=== PATIENT | female | born 1940 | race Caucasian/White ===

== ENCOUNTER 2020-01-21 14:27 | Outpatient (REF) | payer MEDICARE, SELFPAY ==
[2020-01-21 17:28] LABS: Free T4 (Free Thyroxine) 0.97 ng/dL (0.71-1.85); Thyroid Stimulating Hormone 0.26 uIU/mL (0.32-4.0)
[2020-01-22 08:07] LABS: Triiodothyronine T3 Total 129 ng/dL (76-181)
== END 2020-01-21 14:28 | disposition home or self-care (01) ==
LOC: HO.HMGCLDS 14:27
PROVIDERS: PCP Internal Medicine; Visit Provider Hospitalist
DX: E03.9 Hypothyroidism, unspecified (principal)
CPT/HCPCS: 84439; 84443; 84480

== ENCOUNTER 2020-04-21 07:37 | Emergency (ER) | payer MEDICARE, SELFPAY ==
[2020-04-21 07:44] VITALS: BP 132/76; BP 143/70; PULSE 83; PULSE 87; RESP 16; TEMP 37.2; O2SAT 100; O2SAT 99
--- NOTE | 2020-04-21 07:56 | ED_ITS ---
HPI - Weakness General Chief complaint: General Medical Stated complaint: WEAKNESS,SOB, ?'S COVID VACC RELATED Time Seen by Provider: 04/21/20 07:56 Source: patient Mode of arrival: ambulatory Limitations: no limitations History of Present Illness HPI Narrative: Patient been feeling weak tired for last 1 week after getting the COVID vaccination patient denies any fever no shortness of breath no cough no urinary symptoms MD Complaint: generalized weakness Related Data Home Medications Medication Instructions Recorded Confirmed celecoxib 100 mg capsule 100 mg PO BID 01/21/20 01/21/20 dextroamphetamine-amphetamine 20 1 tab PO DAILY 01/21/20 01/21/20 mg tablet dextroamphetamine-amphetamine ER 1 cap PO QAM 01/21/20 01/21/20 10 mg 24hr capsule,extend release lactulose 10 gram/15 mL oral 3 PO PRN 01/21/20 01/21/20 solution Previous Rx's Medication Instructions Recorded valacyclovir 500 mg tablet 500 mg PO DAILY #90 tab 04/04/20 Allergies Allergy/AdvReac Type Severity Reaction Status Date / Time lidocaine Allergy Unknown Verified 10/12/19 00:00 No Known Allergies Allergy Unverified 11/26/19 19:45 [No Known Allergies*] alcohol Allergy Unknown Uncoded 10/12/19 00:00 Review of Systems Review of Systems: Constitutional : No Weight loss, No Fever, No Chills ENT/Mouth : No sore throat, No Rhinorrhea Eyes: No Eye Pain, No Swelling Cardiovascular : No Chest Pain, no palpitations Respiratory : No Cough, No Sputum, no shortness of breath Gastrointestinal : no Nausea, No Vomiting, No Diarrhea, No abdominal Pain, no black stools Genitourinary : No Dysuria, No Urinary Frequency Musculoskeletal : No joint pain, No Myalgias, No Joint Swelling Skin : No Skin Lesions, No rash Neuro : No Weakness, No Numbness, No Dizziness, No Headache Psych : No Anxiety/Panic, No Depression Heme/Lymph: No Bruising, No Lymphadenopathy Endocrine : No Polyuria, No Polydipsia All other systems reviewed and are negative PMFSH Past Medical History Medical History Hypothyroid Sensitive to concentration of IV drug Surgical History History of hip replacement Social History Social History Alcohol intake: never Smoking Status: Former smoker Smoked in Last 30 Days: No Use of substances other than those prescribed or required for medical reasons: No Advance Directives: No Advance Directives Information Provided: No Physical Exam Vital Signs: Vital Signs: Last Vital Signs Temp 98.9 F 04/21/20 07:44 Pulse 83 04/21/20 07:44 Resp 16 04/21/20 07:44 BP 143/70 H 04/21/20 07:44 Pulse Ox 100 04/21/20 07:44 Body Mass Index 30.0 Appearance: Alert. Oriented X3. No acute distress. Eyes: Pupils equal, round and reactive to light. ENT: Pharynx normal. Neck: Normal inspection. Neck supple. CVS: Normal heart rate and rhythm. Pulses normal. Respiratory: No respiratory distress. Breath sounds normal. Abdomen: Soft and nontender. Bowel sounds are present, no mass palpable, no CVA tenderness Skin: Skin warm and dry. Normal skin color. Normal skin turgor. Extremities: No lower extremity edema. Neuro: Oriented X 3. No motor deficit. No sensory deficit. MDM - Weakness Differential Diagnosis Differential diagnosis: Likely UTI, anemia, hypoglycemia and hypothyroidism Medical Records Attestation: I reviewed the patient's medical records. Lab Data Attestation: I reviewed the patient's lab results. Result diagrams: 04/21/20 08:25 04/21/20 08:25 Labs: Lab Results 04/21/20 04/21/20 04/21/20 Range/Units 08: 08:25 08:25 WBC 14.6 H (4.8-10.8) X10*3/uL RBC 3.98 L (4.20-5.50) X10*6/uL Hgb 12.3 (12.0-16.0) g/dl Hct 36.1 L (37-47) % MCV 90.7 (80-98) fL MCH 30.9 (27.0-33.0) pg MCHC 34.1 (31.0-35.0) g/dl RDW 13.5 (11.0-16.0) % Plt Count 184 (160-400) X10*3/uL MPV 12.0 (9.4-12.3) fL Immature Gran % (Auto) 0.5 H (0.0-0.4) % Neut % (Auto) 81.9 H (45-73) % Lymph % (Auto) 4.7 L (20-40) % [place] % (Auto) 11.9 H (2-11) % Eos % (Auto) 0.7 (0-4) % Baso % (Auto) 0.3 (0-2) % Lymph # (Auto) 0.7 L (1.2-4.9) X10*3/uL [place] # (Auto) 1.7 H (0.1-1.2) X10*3/uL Eos # (Auto) 0.1 (0.0-0.4) X10*3/uL Baso # (Auto) 0.1 (0.0-0.2) X10*3/uL Abs Immat Gran (auto) 0.07 H (0.00-0.03) X10*3/uL Absolute Neuts (auto) 11.9 H (2.0-8.3) X10*3/uL Absolute Nucleated RBC 0.000 (0.0-0.012) X10*3/uL Nucleated RBC % (auto) 0.0 (0.0-0.2) /100WBC Smear Tech's Comments VERIFIED Sodium 136 (135-145) mmol/L Potassium 4.3 (3.3-5.1) mmol/L Chloride 102 (96-108) mmol/L Carbon Dioxide 25 (22-29) mmol/L Anion Gap 13 (12-20) BUN 12 (9-16) mg/dL Creatinine 0.65 (0.5-1.4) mg/dL Estim Creat Clear Calc 71.5 Estimated GFR > 60 Random Glucose 114 (60-115) mg/dL Calcium 8.0 L (8.4-10.2) mg/dL Total Bilirubin 0.8 (0.0-1.0) mg/dL Direct Bilirubin 0.3 (0.0-0.5) mg/dL AST 48 H (5-31) U/L ALT 43 H (0-31) U/L Alkaline Phosphatase 95 (39-117) U/L Total Protein 6.3 L (6.5-8.0) g/dL Albumin 3.1 L (3.5-5.0) g/dL TSH 2.80 (0.32-4.0) uIU/mL Urine Color Urine Appearance Urine pH (5.0-8.0) Ur Specific [place] (1.005-1.025) Urine Protein (NEG-TRACE) MG/DL Urine Glucose (UA) (NEG) MG/DL Urine Ketones (NEG) MG/DL Urine Blood (NEG) Urine Nitrite (NEG) Ur Leukocyte Esterase (NEG) COVID-19 ([facility]) Negative (Negative) COVID-19 Clin Com See Note 04/21/20 Range/Units 09:42 WBC (4.8-10.8) X10*3/uL RBC (4.20-5.50) X10*6/uL Hgb (12.0-16.0) g/dl Hct (37-47) % MCV (80-98) fL MCH (27.0-33.0) pg MCHC (31.0-35.0) g/dl RDW (11.0-16.0) % Plt Count (160-400) X10*3/uL MPV (9.4-12.3) fL Immature Gran % (Auto) (0.0-0.4) % Neut % (Auto) (45-73) % Lymph % (Auto) (20-40) % [place] % (Auto) (2-11) % Eos % (Auto) (0-4) % Baso % (Auto) (0-2) % Lymph # (Auto) (1.2-4.9) X10*3/uL [place] # (Auto) (0.1-1.2) X10*3/uL Eos # (Auto) (0.0-0.4) X10*3/uL Baso # (Auto) (0.0-0.2) X10*3/uL Abs Immat Gran (auto) (0.00-0.03) X10*3/uL Absolute Neuts (auto) (2.0-8.3) X10*3/uL Absolute Nucleated RBC (0.0-0.012) X10*3/uL Nucleated RBC % (auto) (0.0-0.2) /100WBC Smear Tech's Comments Sodium (135-145) mmol/L Potassium (3.3-5.1) mmol/L Chloride (96-108) mmol/L Carbon Dioxide (22-29) mmol/L Anion Gap (12-20) BUN (9-16) mg/dL Creatinine (0.5-1.4) mg/dL Estim Creat Clear Calc Estimated GFR Random Glucose (60-115) mg/dL Calcium (8.4-10.2) mg/dL Total Bilirubin (0.0-1.0) mg/dL Direct Bilirubin (0.0-0.5) mg/dL AST (5-31) U/L ALT (0-31) U/L Alkaline Phosphatase (39-117) U/L Total Protein (6.5-8.0) g/dL Albumin (3.5-5.0) g/dL TSH (0.32-4.0) uIU/mL Urine Color YELLOW Urine Appearance CLEAR Urine pH 7.0 (5.0-8.0) Ur Specific [place] <= 1.005 (1.005-1.025) Urine Protein NEG (NEG-TRACE) MG/DL Urine Glucose (UA) NEG (NEG) MG/DL Urine Ketones NEG (NEG) MG/DL Urine Blood NEG (NEG) Urine Nitrite NEG (NEG) Ur Leukocyte Esterase NEG (NEG) COVID-19 ([facility]) (Negative) COVID-19 Clin Com Discharge Plan Discharge Clinical Impression: Weakness Patient Disposition: Home, Self-Care Instructions: Weakness (ED) Additional Instructions: You have slightly elevated WBC count. Etiology not clear. Report to the ER/PCP if high-grade fever chills increased cough or change in symptoms Drink plenty of fluids Prescriptions: No Action valacyclovir 500 mg tablet 500 mg PO DAILY Qty: 90 RF: 3 dextroamphetamine-amphetamine 20 mg tablet 1 tab PO DAILY RF: 0 lactulose 10 gram/15 mL solution 3 PO PRNRF: 0 dextroamphetamine-amphetamine 10 mg capsule,extended release 24hr 1 cap PO QAM RF: 0 celecoxib 100 mg capsule 100 mg PO BID RF: 0
--- NOTE | 2020-04-21 08:02 | ECG_ITS ---
Test Reason : WEAKNESS Blood Pressure : / mmHG Vent. Rate : 079 BPM Atrial Rate : 079 BPM P-R Int : 160 ms QRS Dur : 086 ms QT Int : 372 ms P-R-T Axes : 059 023 036 degrees QTc Int : 426 ms Normal sinus rhythm Normal ECG When compared with ECG of 02-FEB-2019 16:50, No significant change was found Referred By: Bandar Wong Electronically Signed By:ANTELMO BERGER MD
[2020-04-21 08:35] LABS: Basophils Absolute Auto 0.1 X10*3/uL (0.0-0.2); Basophils Percent Auto 0.3 % (0-2); Eosinophils Absolute Auto 0.1 X10*3/uL (0.0-0.4); Eosinophils Percent Auto 0.7 % (0-4); Hematocrit 36.1 % (37-47); Hemoglobin 12.3 g/dl (12.0-16.0); Imm Gran Abs Auto 0.07 X10*3/uL (0.00-0.03); Imm Gran Pct Auto 0.5 % (0.0-0.4); Lymphocytes Absolute Auto 0.7 X10*3/uL (1.2-4.9); Lymphocytes Percent Auto 4.7 % (20-40); MANUAL DIFF FLAG SCAN; Mean Corpuscular HGB Conc 34.1 g/dl (31.0-35.0); Mean Corpuscular Hemoglobin 30.9 pg (27.0-33.0); Mean Corpuscular Volume 90.7 fL (80-98); Monocytes Absolute Auto 1.7 X10*3/uL (0.1-1.2); Monocytes Percent Auto 11.9 % (2-11); Neutrophils Absolute Auto 11.9 X10*3/uL (2.0-8.3); Neutrophils Percent Auto 81.9 % (45-73); Platelet Count 184 X10*3/uL (160-400); Red Blood Count 3.98 X10*6/uL (4.20-5.50); Red Cell Distribution Width 13.5 % (11.0-16.0); SCAN SMEAR FLAG 1; White Blood Count 14.6 X10*3/uL (4.8-10.8)
[2020-04-21 08:48] LABS: COVID-19 Test Negative (Negative)
[2020-04-21 09:01] LABS: Alanine Aminotransferase 43 U/L (0-31); Albumin Level 3.1 g/dL (3.5-5.0); Alkaline Phosphatase 95 U/L (39-117); Anion Gap 13 (12-20); Aspartate Amino Transferase 48 U/L (5-31); Bilirubin Direct 0.3 mg/dL (0.0-0.5); Bilirubin Total 0.8 mg/dL (0.0-1.0); Blood Urea Nitrogen 12 mg/dL (9-16); Carbon Dioxide 25 mmol/L (22-29); Chloride 102 mmol/L (96-108); Creatinine Clr Calc Pharmacy 71.5; Estimated Glomerular Filt Rate > 60; Glucose Random 114 mg/dL (60-115); Potassium 4.3 mmol/L (3.3-5.1); Sodium 136 mmol/L (135-145); Total Protein 6.3 g/dL (6.5-8.0)
[2020-04-21 09:08] LABS: SLIDE REVIEW VERIFIED
[2020-04-21] MEDS: 0.9 % Sodium Chloride 1,000 ML 999 ML IVCONT (09:09)
--- NOTE | 2020-04-21 09:40 | PC.NURSE ---
pt given toast and butter, eating po w/o issue. ambulated to and from bathroom w steady gait.
[2020-04-21 09:48] LABS: Glucose Urine UA NEG (NEG); Leukocyte Esterase Urine NEG (NEG); Nitrite Urine NEG (NEG); Specific Gravity - Urine <= 1.005 (1.005-1.025); Urine Blood NEG (NEG); Urine Ketones NEG (NEG); Urine Protein NEG (NEG-TRACE)
[2020-04-21 09:49] LABS: Appearance Urine CLEAR; Color Urine YELLOW
== END 2020-04-21 10:49 | disposition home or self-care (01) ==
PROVIDERS: Emergency Provider Internal Medicine; PCP Internal Medicine
DX: R53.1 Weakness (principal); T88.1XXA Other complications following immunization, not elsewhere classified, initial encounter; X58.XXXA Exposure to other specified factors, initial encounter; Z20.822 Contact with and (suspected) exposure to COVID-19; Z87.891 Personal history of nicotine dependence; Z79.899 Other long term (current) drug therapy
CPT/HCPCS: 36415; 80048; 80076; 81003; 84443; 85025; 87635; 93005; 96360; 99284

== ENCOUNTER 2020-04-23 12:29 | Inpatient (IN) | payer MEDICARE, SELFPAY ==
--- NOTE | ~2020-04-23 | CT_ITS ---
PROCEDURE: CT GUIDED ABSCESS DRAINAGE CLINICAL INFORMATION: Periappendiceal abscess COMPARISON: CT scan of April 23, 2020 TECHNIQUE: CT fluoroscopic pelvic drainage catheter placement This CT examination was performed using dose optimization techniques as appropriate, variously including the following: *Automated exposure control *Adjustment of mA and/or kV according to patient size (this includes techniques or standardized protocols for targeted exams where dose is matched to indication/reason for exam; i.e. extremities or head) *Use of iterative reconstruction technique DLP: 567 mGy-cm FINDINGS: Informed consent was obtained from the patient prior to the procedure. During this process, the procedure and potential alternatives were explained, along with the intended outcome and benefits. The risks of the procedure, as well as the risk of not doing the procedure, were discussed. The patient was given the opportunity to ask questions regarding the procedure and appeared competent to make medical decisions. A signed consent form which documents this discussion was placed in the medical record. Using sterile technique and fluoroscopic guidance, from a right lateral approach, a 5 Palestinian Yueh needle was placed into the periappendiceal abscess collection. A few milliliters of foul-smelling purulent fluid was removed and sent for culture. A guidewire was coiled within the abscess cavity and following fascial dilatation a 12 Palestinian drainage catheter was placed. A total of 12 mL of fluid was removed as well as gas. The catheter was sutured in placed and put to Manpreet-Grider bulb suction. Patient tolerated procedure without difficulty. CT/CT guided drainage IMPRESSION: Placement of 12 Palestinian right periappendiceal abscess drain.
--- NOTE | ~2020-04-23 | XR_ITS ---
EXAMINATION: XR CHEST CLINICAL INFORMATION: Fever with weakness COMPARISON: None TECHNIQUE: 2 views of the chest were obtained. FINDINGS: There is mild elevation of the right hemidiaphragm. There is some blunting of the hemidiaphragm which may be related to some chronic pleural disease or small effusion. Heart normal size. No evidence of pulmonary edema. No pneumothorax. Density about the peripheral left lower lung likely related to calcification anterior rib versus calcified granuloma. XR/XR chest 2V IMPRESSION: No significant acute parenchymal disease. Question minimal right pleural effusion.
--- NOTE | ~2020-04-23 | CT_ITS ---
EXAMINATION: CT ABDOMEN AND PELVIS WITH CONTRAST CLINICAL INFORMATION: Right lower quadrant tenderness. Evaluate for bowel obstruction or appendicitis. COMPARISON: None TECHNIQUE: Multidetector volumetric images were obtained from the superior aspect of the liver through the pubic symphysis following administration 85 mL of Omnipaque 350 intravenous contrast. Sagittal and coronal reformatted images were obtained on the technologist's workstation. Oral contrast: No This CT examination was performed using dose optimization techniques as appropriate, variously including the following: *Automated exposure control *Adjustment of mA and/or kV according to patient size (this includes techniques or standardized protocols for targeted exams where dose is matched to indication/reason for exam; i.e. extremities or head) *Use of iterative reconstruction technique DLP: 808 mGy-cm FINDINGS: LUNG BASES: The visualized lung bases are unremarkable. LIVER, GALLBLADDER, AND BILIARY TREE: The liver is normal in size, shape, and attenuation. No focal hepatic lesion or biliary ductal dilatation is present. Gallbladder unremarkable. PANCREAS: Unremarkable. SPLEEN: Unremarkable. ADRENAL GLANDS: Unremarkable. KIDNEYS AND URETERS: The kidneys are normal in size, shape, and attenuation. There are a couple simple renal cysts on the right measuring up to 1.3 cm. No hydronephrosis, hydroureter, or calculi seen. No perinephric stranding. BLADDER: Unremarkable. GASTROINTESTINAL TRACT: There is a 6.0 x 3.7 x 4.6 cm debris, and gas containing collection within the right lower quadrant, into which a small portion of the remaining appendix extends, most compatible with appendicitis complicated by rupture and abscess formation. Extensive surrounding inflammatory changes, and scattered foci of intraperitoneal free air present. There is secondary inflammation of the adjacent sigmoid colon which courses near the collapsed portion, as well as the terminal ileum. No evidence of obstruction. Stomach unremarkable. ABDOMINAL WALL: No significant hernia is appreciated. LYMPH NODES: Normal. VASCULAR: Abdominal aorta is atherosclerotic and ectatic with a infrarenal aneurysm measuring up to 3.4 cm containing mural adherent thrombus. PELVIC VISCERA: Uterus and adnexa unremarkable. Moderate free fluid present within the pelvis. OSSEOUS STRUCTURES: No acute or suspicious osseous abnormalities. CT/CT abdomen pelvis w con IMPRESSION: * Ruptured appendicitis with abscess formation within right lower quadrant measuring up to 6.0 cm. The collection does not appear to be mature in the sense that it does not have a thick wall at this time, which may render percutaneous drainage less successful. * Scattered foci of intraperitoneal free air as well as free fluid within the pelvis. * Secondary inflammation of the adjacent sigmoid colon and terminal ileum. This critical result was discussed with Dr Beto Perez at 04/23/2020 4:14 PM and it was ascertained that the content and urgency of the report was understood at the time of direct communication.
--- NOTE | ~2020-04-23 | CT_ITS ---
EXAMINATION: CT ANGIOGRAM OF THE CHEST WITH AND WITHOUT CONTRAST (CT PULMONARY ANGIOGRAM FOR PE) CLINICAL INFORMATION: low oxygen and shortness of breath COMPARISON: Chest x-ray 04/23/2020 TECHNIQUE: Prior to contrast administration, noncontrast localization images were obtained. Subsequently, multidetector volumetric imaging was performed from the thoracic inlet to below the diaphragms following the administration of 65 mL Omnipaque 350 intravenous contrast. No contrast reaction reported Sagittal, coronal, and MIP oblique sagittal reformatted images were obtained on the CT workstation, uploaded to PACS, and reviewed. This CT examination was performed using dose optimization techniques as appropriate, variously including the following: *Automated exposure control *Adjustment of mA and/or kV according to patient size (this includes techniques or standardized protocols for targeted exams where dose is matched to indication/reason for exam; i.e. extremities or head) *Use of iterative reconstruction technique Total exam dose-length product 90 is a 1 mGy-cm FINDINGS: QUALITY OF STUDY/CONTRAST BOLUS: 90 PULMONARY ARTERIES: No central or segmental pulmonary emboli. THORACIC AORTA: No aneurysm or dissection. Moderate calcified and noncalcified atherosclerotic changes. LUNG: Bilateral lower lobe consolidation, likely compressive atelectasis. Mild patchy dependent groundglass opacity likely atelectasis as well. PLEURA: Small bilateral pleural effusions are present, right greater than left. There is a small amount of MEDIASTINUM: Normal heart size. No pericardial effusion. No hilar or mediastinal lymphadenopathy. No evidence of septal bowing or right heart strain. CHEST WALL/AXILLA: No axillary or internal mammary lymphadenopathy. OSSEOUS STRUCTURES: No acute or suspicious osseous abnormality. UPPER ABDOMEN: See separately dictated CT abdomen pelvis obtained at the same time. No reflux of contrast into the hepatic veins to suggest elevated right heart pressures. CT/CT angio chest PE protocol IMPRESSION: No pulmonary embolus seen. Left greater than right small bilateral pleural effusions and associated bibasilar consolidation, at least in part compressive atelectasis. VTE: negative
--- NOTE | ~2020-04-23 | CT_ITS ---
EXAMINATION: CT ABDOMEN AND PELVIS WITH CONTRAST CLINICAL INFORMATION: Follow-up perforated appendicitis. Elevated white blood cell count. COMPARISON: April 24, 2020 and April 23, 2020 TECHNIQUE: Multidetector volumetric images were obtained from the superior aspect of the liver through the pubic symphysis following administration of 65 mL of Omnipaque 350 intravenous contrast. Sagittal and coronal reformatted images were obtained on the technologist's workstation. Oral contrast: No This CT examination was performed using dose optimization techniques as appropriate, variously including the following: *Automated exposure control *Adjustment of mA and/or kV according to patient size (this includes techniques or standardized protocols for targeted exams where dose is matched to indication/reason for exam; i.e. extremities or head) *Use of iterative reconstruction technique DLP: 528 mGy-cm FINDINGS: LUNG BASES: Patient has developed small bilateral pleural effusions with some right base atelectasis. Heart normal size. Coronary artery calcifications present. No pericardial effusion. LIVER, GALLBLADDER, AND BILIARY TREE: The liver is normal in size, shape, and attenuation. No focal hepatic lesion or biliary ductal dilatation is present. The gallbladder is unremarkable with no evidence of radiopaque gallstones, gallbladder wall thickening, or obvious pericholecystic inflammatory changes. Some gallbladder sludge is present. PANCREAS: Unremarkable. SPLEEN: Unremarkable. ADRENAL GLANDS: Unremarkable. KIDNEYS AND URETERS: The kidneys are normal in size, shape, and attenuation. No hydronephrosis, hydroureter, or calculi seen. No perinephric stranding. Cysts again noted within the right kidney. BLADDER: There is some nondependent gas seen within the urinary bladder which may be iatrogenic in nature. Streak artifact from bilateral hip replacements limits evaluation of the lower pelvis such as if patient has a Porter catheter in place. GASTROINTESTINAL TRACT: No dilated loops of large or small bowel are evident. There is some distention of loops of colon but only up to 5 cm in diameter and with no evidence of wall thickening or pneumatosis.. Moderate free fluid is again noted about the pelvis without gas within the collections. The largest collection is in the cul-de-sac measuring approximately 8.7 x 8.8 cm in size with other collections anterior to the uterus and adjacent to urinary bladder.. No significant free air appreciated. Periappendiceal abscess drain in place with abscess cavity decompressed. ABDOMINAL WALL: No significant hernia is appreciated. LYMPH NODES: There is a 1.2 cm short axis celiac lymph node present. No other pathologically enlarged lymph nodes are appreciated. VASCULAR: There is moderate atherosclerotic disease in the aortoiliac system with calcified plaque. There is a 3.2 cm infrarenal abdominal aortic aneurysm which extends into the aortic bifurcation. The celiac, superior mesenteric, and inferior mesenteric arteries are patent. PELVIC VISCERA: Free fluid present. No suspicious masses identified. OSSEOUS STRUCTURES: Status post bilateral total hip arthroplasty. There is osteopenia visualized bones. Multilevel degenerative disc disease is seen. L5 pars defects present. There is grade 1 spondylolisthesis L4-L5. There is mild scoliosis mid lumbar spine convex right. CT/CT abdomen pelvis w con IMPRESSION: Interval development of small bilateral pleural effusions with right lower lobe disease which may relate to atelectasis or pneumonitis. Periappendiceal abscess decompressed with trained in place. Moderate amount of free fluid about the pelvis as described in multiple locations, none of which containing gas bubbles. Gas within the urinary bladder. Clinical correlation with Porter catheter or recent intervention suggested.
[2020-04-23 12:47] VITALS: BP 121/63; PULSE 116; RESP 18; TEMP 38.7; O2SAT 94
--- NOTE | 2020-04-23 13:56 | ECG_ITS ---
Test Reason : ABD PAIN Blood Pressure : / mmHG Vent. Rate : 102 BPM Atrial Rate : 102 BPM P-R Int : 150 ms QRS Dur : 084 ms QT Int : 330 ms P-R-T Axes : 068 051 038 degrees QTc Int : 430 ms Sinus tachycardia Otherwise normal ECG When compared with ECG of 21-APR-2020 08:11, No significant change was found Referred By: Beto Perez Electronically Signed By:ANTELMO BERGER MD
--- NOTE | 2020-04-23 13:59 | ED.GENADULT ---
HPI - General Adult General Chief complaint: General Medical Stated complaint: ABD PAIN,LETHARGY Time Seen by Provider: 04/23/20 13:31 Source: patient Mode of arrival: ambulatory Limitations: no limitations History of Present Illness HPI narrative: 80-year-old female who presents emergency department for evaluation of weakness, abdominal pain and bloated sensation. The patient states that she has been sick ever since she received her COVID-19 vaccine approximately 10 days prior. She states that since then she has had generalized weakness, dizziness and a fuzzy sensation in her head. She also states she feels hyperactive. She states that she was constipated but did clean herself out with prunes and laxatives. She states that 3 days prior she was using the bathroom when she felt lightheaded dizzy and weak and had to sit down on the bathroom floor. Her partner called an ambulance and she was transferred to the emergency department and evaluated. Her evaluation revealed an elevated white blood cell count otherwise no other obvious cause for her symptoms. She states that since being evaluated in the emergency department she continues to feel weak and dizzy. She states that she also has abdominal pain which she describes as a constant, achy sensation which is 3/10 at its worst. She points to her lower abdomen asked to localize the pain. States the pain is worse with movement. She also has lower back pain but she states this is chronic. She states that she developed a fever at home but the highest temperature she documented was 98? F. she complained of shaking chills. She denied frequency, urgency or dysuria. Related Data Home Medications Medication Instructions Recorded Confirmed celecoxib 100 mg capsule 100 mg PO BID 01/21/20 04/21/20 dextroamphetamine-amphetamine 20 1 tab PO DAILY 01/21/20 04/21/20 mg tablet dextroamphetamine-amphetamine ER 1 cap PO QAM 01/21/20 04/21/20 10 mg 24hr capsule,extend release lactulose 10 gram/15 mL oral 3 PO PRN 01/21/20 04/21/20 solution Previous Rx's Medication Instructions Recorded valacyclovir 500 mg tablet 500 mg PO DAILY #90 tab 04/04/20 Allergies Allergy/AdvReac Type Severity Reaction Status Date / Time lidocaine Allergy Unknown Unknown Verified 04/23/20 12:54 almond Allergy Rash Verified 04/23/20 12:54 No Known Allergies Allergy Unverified 11/26/19 19:45 [No Known Allergies*] alcohol Allergy Unknown Dizziness Uncoded 04/23/20 12:54 Review of Systems Review of Systems: Yes all other systems are reviewed and are negative Neurologic: Reports Abnormal speech present [facility] Past Medical History [facility] Narrative: Past medical history sent for hypothyroidism, ADD. The patient denies tobacco, alcohol and drug use. Medical History Hypothyroid Sensitive to concentration of IV drug Surgical History History of hip replacement Social History Social History Alcohol intake: never Smoking Status: Never smoker Use of substances other than those prescribed or required for medical reasons: No Advance Directives: No Advance Directives Information Provided: Yes Physical Exam Vital Signs: Vital Signs: Last Vital Signs Temp 98.4 F 04/23/20 16:53 Pulse 102 H 04/23/20 16:53 Resp 18 04/23/20 16:53 BP 102/50 L 04/23/20 16:53 Pulse Ox 95 04/23/20 16:53 Body Mass Index 30.0 Const: General: cooperative and anxious Orientation/consciousness: oriented to person and oriented to place Limitations: no limitations HENMT: Head: Yes normal to inspection, Yes normocephalic and Yes atraumatic Ears: external ears normal General nose exam: Normal external nose present Face and sinus: Yes normal facial exam Mouth: Normal oral and palatal mucosa present Throat: Yes posterior oropharynx normal Eyes: Periorbital: periorbital findings normal Eyelids: Yes eyelids normal Conjunctivae: conjunctivae normal Sclerae: sclerae normal Corneas: corneas normal Pupils: Equal, round and reactive pupils present Direct Ophthalmoscopy: normal light reflex Neck: Neck: Yes full ROM, Yes no lymphadenopathy, Yes no meningeal signs, Yes trachea midline and Yes supple Chest: Chest palpation & inspection: normal inspection of the chest and normal palpation of entire chest wall Resp: Effort & Inspection: normal respiratory effort and able to speak in complete sentences Auscultation: clear to auscultation bilaterally Cardio: Rate: regular rate Rhythm: regular rhythm Heart sounds: S1 normal heart sound present, S2 normal heart sound present and no murmurs GI: Inspection: Yes distended Palpation (GI): Soft to palpation, Tenderness to palpation present (GI) in the RLQ (Moderate), in the LUQ (Mild) and suprapubicly (Mild), Guarding due to palpation present (GI) in the RLQ (Moderate), not rigid and No hepatosplenomegaly present : General: Yes no CVA tenderness Back/Spine/Pelvis: Back: no CVA tenderness Cervical Spine: normal cervical lordosis Thoracic/Lumbar Spine: thoracic and lumbar spine normal to inspection Skin: Lesions: no lesions Rashes: no rashes Wounds: no wounds Neuro: General: oriented to person, oriented to place and no meningeal signs Cranial nerves: Yes CN's II-XII intact bilaterally and Yes Equal, round and reactive pupils present Cognition (Neuro): normal cognition Speech: Abnormal speech present Motor exam (neuro): 5/5 motor strength present throughout Extrem: General: Yes normal to inspection and Yes full ROM Psych: Appearance: well kempt Mental Status: mental status grossly normal Speech and movement: Normal speech and movement present Affect: normal affect Attitude: cooperative Thought process: Normal thought process present Thought content: Normal thought content present Course Course Course Narrative: 80-year-old female who presents emergency department for multiple complaints including weakness, and ?fuzziness ?, ?hyper fever, and abdominal pain. Vital signs reveal that she was tachycardic with a pulse of 116, and elevated temperature of a 101.7? F (orally). The patient did have lower abdominal tenderness with increased tenderness in the right lower quadrant as well as abdominal distention. I did order a sepsis workup this patient and the CT scan the patient's abdomen pelvis with IV contrast. Will also obtain a chest x-ray on the patient. The patient was COVID tested 3 days prior to this was negative but I will repeat this as well. 1713: The patient's laboratory evaluation revealed mild anemia with an H&H of 12 in 34.5, elevated AST, ALT and alk-phos of 84, 80 and 146. Patient's lactic acid was not elevated. Lipase was negative. Urinalysis was negative. COVID-19 was negative. Chest x-ray was unremarkable. CT scan of the abdomen pelvis with IV contrast did reveal a ruptured appendix with an abscess. I did contact the surgeon on-call, Dr. Mott and she did accept the patient on her service. She requested that I contact Interventional Radiology to see if they can drain the patient's abscess this evening. Interventional Radiology will come in and perform the procedure. The patient does meet SIRS criteria but I do not think that the patient has severe sepsis at this time. I did order Zosyn 4.5 g IV. I did inform the patient of these findings and she is aware that she needs an interventional procedure and possible surgical intervention as well. Medical Decision Making Lab Data Result diagrams: 04/23/20 14:51 04/23/20 14:51 Labs: Lab Results 04/23/20 04/23/20 04/23/20 Range/Units 14:33 14:51 14:51 WBC 5.1 (4.8-10.8) X10*3/uL RBC 3.87 L (4.20-5.50) X10*6/uL Hgb 12.1 (12.0-16.0) g/dl Hct 34.5 L (37-47) % MCV 89.1 (80-98) fL MCH 31.3 (27.0-33.0) pg MCHC 35.1 H (31.0-35.0) g/dl RDW 13.4 (11.0-16.0) % Plt Count 210 (160-400) X10*3/uL MPV 12.4 H (9.4-12.3) fL Immature Gran % (Auto) Cancelled Neut % (Auto) Cancelled Lymph % (Auto) Cancelled [place] % (Auto) Cancelled Eos % (Auto) Cancelled Baso % (Auto) Cancelled Lymph # (Auto) Cancelled [place] # (Auto) Cancelled Eos # (Auto) Cancelled Baso # (Auto) Cancelled Abs Immat Gran (auto) Cancelled Absolute Neuts (auto) Cancelled Absolute Nucleated RBC 0.000 (0.0-0.012) X10*3/uL Nucleated RBC % (auto) 0.0 (0.0-0.2) /100WBC Neutrophils % (Manual) 52 (45-73) % Band Neutrophils % 26 H (3-5) % Lymphocytes % (Manual) 9 L (20-40) % Monocytes % (Manual) 12 H (2-11) % Eosinophils % (Manual) 1 (0-4) % Abs Neuts (Manual) 4.0 (2.2-7.9) X10*3/uL Lymphocytes # (Manual) 0.5 L (0.6-4.8) X10*3/uL Monocytes # (Manual) 0.6 (0.0-1.2) X10*3/uL Eosinophils # (Manual) 0.1 (0.0-0.8) X10*3/UL Platelet Estimate NORMAL (NORMAL) Plt Morphology Comment NORMAL RBC Morphology NORMAL PT 15.1 H (10.8-13.0) SEC INR 1.3 H (0.9-1.1) APTT 23.5 L (24.1-38.0) SEC Sodium (135-145) mmol/L Potassium (3.3-5.1) mmol/L Chloride (96-108) mmol/L Carbon Dioxide (22-29) mmol/L Anion Gap (12-20) BUN (9-16) mg/dL Creatinine (0.5-1.4) mg/dL Estim Creat Clear Calc Estimated GFR Random Glucose (60-115) mg/dL Lactic Acid (0.5-2.0) mmol/L Calcium (8.4-10.2) mg/dL Total Bilirubin (0.0-1.0) mg/dL AST (5-31) U/L ALT (0-31) U/L Alkaline Phosphatase (39-117) U/L Total Creatine Kinase (26-140) U/L Troponin I High Sens (<3.5-17.0) ng/L Total Protein (6.5-8.0) g/dL Albumin (3.5-5.0) g/dL Lipase (8-78) U/L COVID-19 ([facility]) Negative (Negative) COVID-19 Clin Com See Note 04/23/20 04/23/20 04/23/20 Range/Units 14:51 14:51 14:51 WBC (4.8-10.8) X10*3/uL RBC (4.20-5.50) X10*6/uL Hgb (12.0-16.0) g/dl Hct (37-47) % MCV (80-98) fL MCH (27.0-33.0) pg MCHC (31.0-35.0) g/dl RDW (11.0-16.0) % Plt Count (160-400) X10*3/uL MPV (9.4-12.3) fL Immature Gran % (Auto) Neut % (Auto) Lymph % (Auto) [place] % (Auto) Eos % (Auto) Baso % (Auto) Lymph # (Auto) [place] # (Auto) Eos # (Auto) Baso # (Auto) Abs Immat Gran (auto) Absolute Neuts (auto) Absolute Nucleated RBC (0.0-0.012) X10*3/uL Nucleated RBC % (auto) (0.0-0.2) /100WBC Neutrophils % (Manual) (45-73) % Band Neutrophils % (3-5) % Lymphocytes % (Manual) (20-40) % Monocytes % (Manual) (2-11) % Eosinophils % (Manual) (0-4) % Abs Neuts (Manual) (2.2-7.9) X10*3/uL Lymphocytes # (Manual) (0.6-4.8) X10*3/uL Monocytes # (Manual) (0.0-1.2) X10*3/uL Eosinophils # (Manual) (0.0-0.8) X10*3/UL Platelet Estimate (NORMAL) Plt Morphology Comment RBC Morphology PT (10.8-13.0) SEC INR (0.9-1.1) APTT (24.1-38.0) SEC Sodium 135 (135-145) mmol/L Potassium 3.8 (3.3-5.1) mmol/L Chloride 101 (96-108) mmol/L Carbon Dioxide 26 (22-29) mmol/L Anion Gap 12 (12-20) BUN 17 H (9-16) mg/dL Creatinine 0.70 (0.5-1.4) mg/dL Estim Creat Clear Calc 66.4 Estimated GFR > 60 Random Glucose 101 (60-115) mg/dL Lactic Acid 1.0 (0.5-2.0) mmol/L Calcium 8.1 L (8.4-10.2) mg/dL Total Bilirubin 1.4 H (0.0-1.0) mg/dL AST 84 H (5-31) U/L ALT 80 H (0-31) U/L Alkaline Phosphatase 146 H D (39-117) U/L Total Creatine Kinase 24 L (26-140) U/L Troponin I High Sens 6.2 (<3.5-17.0) ng/L Total Protein 6.0 L (6.5-8.0) g/dL Albumin 3.0 L (3.5-5.0) g/dL Lipase < 4 L (8-78) U/L COVID-19 ([facility]) (Negative) COVID-19 Clin Com Discharge Plan Discharge Clinical Impression: Rupture of appendix, Right lower quadrant abdominal abscess Patient Disposition: Admitted As Inpatient
[2020-04-23] MEDS: 0.9 % Sodium Chloride 1,000 ML 999 ML IV (14:07)
[2020-04-23] MEDS: ondansetron HCL 4 MG/2 ML VIAL 2 MG IVPUSH (14:07)
[2020-04-23] MEDS: Ketorolac Tromethamine 30 MG/ML VIAL 15 MG IVPUSH (14:07)
[2020-04-23] MEDS: Acetaminophen 325 MG TABLET 650 MG PO ×3 (14:09→23:58)
[2020-04-23 15:08] LABS: Hematocrit 34.5 % (37-47); Hemoglobin 12.1 g/dl (12.0-16.0); Mean Corpuscular HGB Conc 35.1 g/dl (31.0-35.0); Mean Corpuscular Hemoglobin 31.3 pg (27.0-33.0); Mean Corpuscular Volume 89.1 fL (80-98); Mean Platelet Volume 12.4 fL (9.4-12.3); Platelet Count 210 X10*3/uL (160-400); Red Blood Count 3.87 X10*6/uL (4.20-5.50); Red Cell Distribution Width 13.4 % (11.0-16.0); White Blood Count 5.1 X10*3/uL (4.8-10.8)
[2020-04-23 15:13] VITALS: BP 116/58; PULSE 109; RESP 16; TEMP 37.3; O2SAT 94
[2020-04-23 15:18] LABS: INTERNATIONAL NORM RATIO 1.3 (0.9-1.1); Prothrombin Time 15.1 SEC (10.8-13.0)
[2020-04-23 15:26] LABS: Partial Thromboplastin Time 23.5 SEC (24.1-38.0)
[2020-04-23 15:33] LABS: Troponin-I High Sensitivity 6.2 ng/L (<3.5-17.0)
[2020-04-23 15:34] LABS: Band Neutrophils Percent 26 % (3-5); Eosinophils Absolute Manual 0.1 X10*3/UL (0.0-0.8); Eosinophils Percent Manual 1 % (0-4); Lymphocytes Absolute Manual 0.5 X10*3/uL (0.6-4.8); Lymphocytes Percent Manual 9 % (20-40); Monocytes Absolute Manual 0.6 X10*3/uL (0.0-1.2); Monocytes Percent Manual 12 % (2-11); Neutrophils Percent Manual 52 % (45-73); Platelet Estimate NORMAL (NORMAL); Platelet Morphology Comment NORMAL; RBC Morphology NORMAL
[2020-04-23 15:37] LABS: Alanine Aminotransferase 80 U/L (0-31); Alkaline Phosphatase 146 U/L (39-117); Anion Gap 12 (12-20); Aspartate Amino Transferase 84 U/L (5-31); Bilirubin Total 1.4 mg/dL (0.0-1.0); Blood Urea Nitrogen 17 mg/dL (9-16); Calcium 8.1 mg/dL (8.4-10.2); Carbon Dioxide 26 mmol/L (22-29); Chloride 101 mmol/L (96-108); Creatinine Clr Calc Pharmacy 66.4; Estimated Glomerular Filt Rate > 60; Glucose Random 101 mg/dL (60-115); Lipase < 4 U/L (8-78); Potassium 3.8 mmol/L (3.3-5.1); Sodium 135 mmol/L (135-145)
[2020-04-23 15:38] LABS: COVID-19 Test Negative (Negative)
[2020-04-23] MEDS: iohexoL 350 MG/ML 100 ML INFUS..BTL IV (16:02)
[2020-04-23 16:53] VITALS: BP 102/50; PULSE 102; RESP 18; TEMP 36.9; O2SAT 95
[2020-04-23] MEDS: Piperacillin Sodium/Tazobactam 4.5 GM in 0.9 % Sodium Chloride 100 ML IV (17:27)
--- NOTE | 2020-04-23 18:02 | P.CONAN_ITS ---
[facility] Active Problems Active Problems: All Active Problems (Updated 04/23/20 @ 17:16 by Beto kwok MD) Rupture of appendix (Acute) Right lower quadrant abdominal abscess (Acute) Constipation (Acute) Hypothyroidism (Acute) Past Medical History Medical History Hypothyroid Sensitive to concentration of IV drug Surgical History Surgical History History of hip replacement Social History Social History Alcohol intake: never Smoking Status: Never smoker Use of substances other than those prescribed or required for medical reasons: No Advance Directives: No Advance Directives Information Provided: Yes Meds Allergies Allergy/AdvReac Type Severity Reaction Status Date / Time lidocaine Allergy Unknown Unknown Verified 04/23/20 12:54 almond Allergy Rash Verified 04/23/20 12:54 No Known Allergies Allergy Unverified 11/26/19 19:45 [No Known Allergies*] alcohol Allergy Unknown Dizziness Uncoded 04/23/20 12:54 Active Medications: Current Medications Generic Name Dose Route Start Last Admin Trade Name Freq PRN Reason Stop Dose Admin Acetaminophen 650 mg 04/23/20 17:52 Acetaminophen 325 Mg Tablet PO Q4H PRN Fever Sodium Chloride 1,000 mls @ 100 mls/hr 04/23/20 17:52 Ns IVCONT .Q10H ADRY Piperacillin Sod/Tazobactam 50 mls @ 100 mls/hr 04/23/20 17:52 Sod 3.375 gm/ Sodium Chloride IV Q6H ADRY Sodium Chloride 500 mls @ 999 mls/hr 04/23/20 17:52 Ns IVCONT 04/23/20 18:22 .Q31M ADRY Morphine Sulfate 2 mg 04/23/20 17:52 Morphine Sulfate 2 Mg/Ml Cartridge IVPUSH Q3H PRN Pain, Moderate (Pain Scale 4-6 Morphine Sulfate 4 mg 04/23/20 17:52 Morphine Sulfate 4 Mg/Ml Cartridge IVPUSH Q3H PRN Pain, Severe (Pain Scale 7-10) Ondansetron HCl 4 mg 04/23/20 17:52 Ondansetron Hcl 4 Mg/2 Ml Vial IVPUSH Q4H PRN Nausea Oxycodone HCl 10 mg 04/23/20 17:52 Oxycodone Hcl Immed Release 5 Mg Tablet PO Q3H PRN Pain, Severe (Pain Scale 7-10) Oxycodone HCl 5 mg 04/23/20 17:52 Oxycodone Hcl Immed Release 5 Mg Tablet PO Q3H PRN Pain, Moderate (Pain Scale 4-6 Sodium Chloride 3 ml 04/24/20 00:00 0.9 % Sodium Chloride Flush 3 Ml Syringe IVFLUSH [facility] Sodium Chloride 3 ml 04/24/20 00:00 0.9 % Sodium Chloride Flush 3 Ml Syringe IVFLUSH [facility] Home Medications Medication Instructions Recorded Confirmed Last Taken Type celecoxib 100 mg capsule 100 mg PO BID 01/21/20 04/21/20 Unknown History dextroamphetamine-amphetamine 20 1 tab PO DAILY 01/21/20 04/21/20 Unknown Hist ory mg tablet dextroamphetamine-amphetamine ER 1 cap PO QAM 01/21/20 04/21/20 Unknown History 10 mg 24hr capsule,extend release lactulose 10 gram/15 mL oral 3 PO PRN 01/21/20 04/21/20 Unknown History solution Exam Exam Date and Time: April 23, 2020 1802 Height,Weight and Vital Signs: Height 5 ft 4 in Weight 79.379 kg Last Vital Signs Temp 98.4 F 04/23/20 16:53 Pulse 102 H 04/23/20 16:53 Resp 18 04/23/20 16:53 BP 102/50 L 04/23/20 16:53 Pulse Ox 95 04/23/20 16:53 Pertinent Lab Results Pertinent Lab Results: Laboratory Tests 04/23/20 04/23/20 04/23/20 14:33 14:51 14:51 WBC 5.1 RBC 3.87 L Hgb 12.1 Hct 34.5 L MCV 89.1 MCH 31.3 MCHC 35.1 H RDW 13.4 Plt Count 210 MPV 12.4 H Immature Gran % (Auto) Cancelled Neut % (Auto) Cancelled Lymph % (Auto) Cancelled [place] % (Auto) Cancelled Eos % (Auto) Cancelled Baso % (Auto) Cancelled Lymph # (Auto) Cancelled [place] # (Auto) Cancelled Eos # (Auto) Cancelled Baso # (Auto) Cancelled Abs Immat Gran (auto) Cancelled Absolute Neuts (auto) Cancelled Absolute Nucleated RBC 0.000 Nucleated RBC % (auto) 0.0 Neutrophils % (Manual) 52 Band Neutrophils % 26 H Lymphocytes % (Manual) 9 L Monocytes % (Manual) 12 H Eosinophils % (Manual) 1 Abs Neuts (Manual) 4.0 Lymphocytes # (Manual) 0.5 L Monocytes # (Manual) 0.6 Eosinophils # (Manual) 0.1 Platelet Estimate NORMAL Plt Morphology Comment NORMAL RBC Morphology NORMAL PT 15.1 H INR 1.3 H APTT 23.5 L Sodium Potassium Chloride Carbon Dioxide Anion Gap BUN Creatinine Estim Creat Clear Calc Estimated GFR Random Glucose Lactic Acid Calcium Total Bilirubin AST ALT Alkaline Phosphatase Total Creatine Kinase Troponin I High Sens Total Protein Albumin Lipase COVID-19 ([facility]) Negative COVID-19 [facility] See Note 04/23/20 04/23/20 04/23/20 14:51 14:51 14:51 WBC RBC Hgb Hct MCV MCH MCHC RDW Plt Count MPV Immature Gran % (Auto) Neut % (Auto) Lymph % (Auto) [place] % (Auto) Eos % (Auto) Baso % (Auto) Lymph # (Auto) [place] # (Auto) Eos # (Auto) Baso # (Auto) Abs Immat Gran (auto) Absolute Neuts (auto) Absolute Nucleated RBC Nucleated RBC % (auto) Neutrophils % (Manual) Band Neutrophils % Lymphocytes % (Manual) Monocytes % (Manual) Eosinophils % (Manual) Abs Neuts (Manual) Lymphocytes # (Manual) Monocytes # (Manual) Eosinophils # (Manual) Platelet Estimate Plt Morphology Comment RBC Morphology PT INR APTT Sodium 135 Potassium 3.8 Chloride 101 Carbon Dioxide 26 Anion Gap 12 BUN 17 H Creatinine 0.70 Estim Creat Clear Calc 66.4 Estimated GFR > 60 Random Glucose 101 Lactic Acid 1.0 Calcium 8.1 L Total Bilirubin 1.4 H AST 84 H ALT 80 H Alkaline Phosphatase 146 H D Total Creatine Kinase 24 L Troponin I High Sens 6.2 Total Protein 6.0 L Albumin 3.0 L Lipase < 4 L COVID-19 ([facility]) COVID-19 [facility]
[2020-04-23] MEDS: 0.9 % Sodium Chloride 500 ML 999 ML IVCONT (19:15)
--- NOTE | 2020-04-23 19:40 | PC.NURSE ---
report given to Jayshree. patient sent to bed assignment
[2020-04-23 19:58] VITALS: BP 108/60; PULSE 96; RESP 14; TEMP 37.3; O2SAT 96
[2020-04-23] MEDS: 0.9 % Sodium Chloride 1,000 ML 100 ML IVCONT (20:22)
[2020-04-23 21:02] LABS: Lactic Acid 1.3 mmol/L (0.5-2.0)
[2020-04-23 23:06] LABS: Glucose Urine UA NEG (NEG); Leukocyte Esterase Urine NEG (NEG); Nitrite Urine NEG (NEG); PH 5.5 (5.0-8.0); Specific Gravity - Urine <= 1.005 (1.005-1.025); Urine Blood NEG (NEG); Urine Ketones NEG (NEG); Urine Protein NEG (NEG-TRACE)
[2020-04-23 23:11] LABS: Appearance Urine CLEAR; Color Urine AMBER
--- NOTE | 2020-04-23 23:12 | PC.NURSE ---
Pt admitted to Med/Surg at approx 20:00pm. Pt slid from stretcher to bed, complaining of 4/10 abd pain. Pt under impression of getting abscess drained tonight. This nurse called [employer]st Lucas who stated that IR is doing the drainage in the morning. Pt is to be NPO at midnight. Pt complaining of inability to urinate, after attempting to use both bedpan and commode. Bladder scanned for [address] Landeros contacted and verbal order to place shook. Shook placed and dark clear yellow urine drained. CC sent and came back negative. Pt VSS at the time. Will continue to monitor.
[2020-04-23 23:46] VITALS: BP 103/59; PULSE 93; RESP 18; TEMP 36.6; O2SAT 94
[2020-04-23] MEDS: Piperacillin Sodium/Tazobactam 3.375 GM in 0.9 % Sodium Chloride 50 ML IV (23:57)
[2020-04-24] VITALS (7 sets, daily range): BP systolic 101–136; BP diastolic 55–68; PULSE 92–104; RESP 15–18; TEMP 36.6–37.4; O2SAT 88–93
[2020-04-24] MEDS: oxyCODONE HCl Immed Release 5 MG TABLET PO (04:25)
[2020-04-24] MEDS: Piperacillin Sodium/Tazobactam 3.375 GM in 0.9 % Sodium Chloride 50 ML IV ×3 (05:26→18:25)
[2020-04-24] MEDS: 0.9 % Sodium Chloride 1,000 ML 100 ML IVCONT ×3 (05:26→18:22)
[2020-04-24 08:16] LABS: Alanine Aminotransferase 57 U/L (0-31); Albumin Level 2.8 g/dL (3.5-5.0); Alkaline Phosphatase 117 U/L (39-117); Anion Gap 15 (12-20); Aspartate Amino Transferase 38 U/L (5-31); Blood Urea Nitrogen 17 mg/dL (9-16); Calcium 8.2 mg/dL (8.4-10.2); Carbon Dioxide 24 mmol/L (22-29); Chloride 101 mmol/L (96-108); Creatinine Clr Calc Pharmacy 63.7; Estimated Glomerular Filt Rate > 60; Glucose Random 95 mg/dL (60-115); Potassium 4.2 mmol/L (3.3-5.1); Sodium 136 mmol/L (135-145); Total Protein 5.8 g/dL (6.5-8.0)
--- NOTE | 2020-04-24 09:38 | MHC.CM.PN ---
PATIENT IS FULLY INDEPENDENT WITH HER ADLS. NEW HCP IS NOW IN CHART. SHE NAMED HER BROTHER AND DAUGHTER AGENTS, IN THAT ORDER. SHE STATES THAT IF HER BOYFRIEND ANDREW CALLS, STAFF HAS PERMISSION TO SPEAK WITH HIM RN AWARE. IMM 04/24 IN CHART.
--- NOTE | 2020-04-24 10:58 | MHC.CM.PN ---
PATIENT ASKED THIS AUDIOPROSTHOLOGIST IF HER SIGNIFICANT TO HER (ANDREW) HAS PERMISSION TO SPEAK WITH STAFF. PATIENT ASKED ON 3 SEPARATE OCCASIONS, AND REMINDED EACH TIME. ANDREW CALLED THIS AUDIOPROSTHOLOGIST TO ASK IF HE CAN SPEAK WITH STAFF, EVEN THOUGH HE IS NOT THE HCP. ANDREW TOLD AND REMINDED THAT BECAUSE THE PATIENT GIVES PERMISSION, THEN IT IS ACCEPTABLE. ANDREW WAS INFORMED THAT OF THIS CALL, NO PLANS ARE SET YET IT WAS ALSO RECOMMENDED THAT IF HE NEEDS OR WANTS INFORMATION, THAT HE SHOULD SPEAK WITH THE PATIENT, WHO IS ALERT AND ORIENTED. NOTE LEFT ON CHART INDICATING SO.
[2020-04-24] MEDS: Lidocaine HCl 1 % MPF 5 ML VIAL 10 ML SUBCUT (14:40)
--- NOTE | 2020-04-24 14:53 | MHC.CM.PN ---
JEANA'S SIGNIFICANT OTHER CALLED THIS RESIDENTIAL SALES EXECUTIVE TO ASK: 1. WHAT ARE THE RESULTS OF THE PROCEDURE? 2. WILL SHE NEED SURGERY? 3. WHO IS THE SURGEON? THIS RESIDENTIAL SALES EXECUTIVE EXPLAINED CASE MANAGEMENT ROLE, AND THAT ONCE SURGEON MEETS WITH THE PATIENT, THE PATIENT CAN CONTACT HIM. IT HAS BEEN SUGGESTED THAT PATIENT HAVE SIGNIFICANT OTHER (ANDREW) BE ON SPEAKER PHONE TO HEAR THE CONVERSATION BETWEEN PROVIDER AND PATIENT. PATIENT AGREES TO THIS. PATIENT CELL PHONE IS AVAILABLE AND WITHIN REACH.
--- NOTE | 2020-04-24 14:55 | PC.NURSE ---
pt returned to room settled into bed. right lower abd has bulb drain dry and intact. call [facility] in reach bed alarm on
--- NOTE | 2020-04-24 15:47 | P.HPGS_ITS ---
History of Present Illness History of Present Illness Date of Service: 04/24/20 Chief complaint: perforated appendicitis with abscess formation Narrative: Sarahi Bernardo is a 80 year old female with a history of hypothyroidism and ADD who presented to the emergency department initially 4 days ago with symptoms of significant weakness. She said she was seen in the emergency department was evaluated verbally but was not examined. Patient was sent home and return to the emergency department last evening with worsening weakness and new onset of a right lower quadrant pressure that was rated a 5/10 on a pain scale. She reports having chronic constipation which was persistent. She does report having a poor appetite which was new. She denies any fever or chills at home. She did have 1 episode of vomiting which prompted her to come to the emergency department. She denied having fever or chills at home but was noted to have a temperature of 101 degrees F in the emergency department. On this evaluation in the emergency department she underwent a CT scan abdomen and pelvis which showed a perforated appendicitis with associated abscess that had a small fluid component but mostly gas in the right lower quadrant. Patient was admitted to my service for management of this perforated appendicitis. Patient was noted to have a slight tachycardia to the 110s when she was seen in the emergency department. Patient just underwent IR placed drain in the right lower quadrant fluid collection without any difficulty. She reports her pain has now resolved and is about a 1/10 on a pain scale. She denies any nausea vomiting. She is interested in starting a liquid diet at least. Of note in the emergency department her white blood cell count was normal but her previous white blood cell count 2 days earlier was in the 14 range. Review of Systems Review of Systems: Yes all other systems are reviewed and are negative Constitutional: Constitutional: Denies chills, Denies daytime sleepiness, Denies difficulty sleeping, Denies excessive sweating, Reports fatigue, Denies fever(s), Denies headache(s), Denies night sweats, Denies snoring, Denies stops breathing during sleep and Reports weakness Eyes: Eyes: Reports blurry vision, Denies other visual disturbances and Reports requires corrective lenses ENT: Denies bleeding gums, Denies dysphagia, Reports dizziness, Denies headache(s), Reports hearing loss (Wears hearing aids occasionally), Denies sinus pain and Denies sore throat Cardiovascular: Cardiovascular: Denies chest pain, Denies chest pain at rest, Denies chest pain with activity, Denies syncope, Denies irregular heart rhythm, Denies leg edema, Reports lightheadedness, Denies dyspnea, Denies dyspnea on exertion and Denies orthopnea Respiratory: Respiratory: Denies chest congestion, Denies cough, Denies dyspnea, Denies dyspnea on exertion, Denies snoring and Denies wheezing Gastrointestinal: Gastrointestinal: Reports abdominal pain, Denies melena, Reports bloating, Reports constipation, Denies dysphagia, Denies heartburn, Denies diarrhea, Denies nausea and Denies vomiting Genitourinary: Genitourinary: Denies hematuria, Reports urinary frequency (Just since these symptoms started), Denies nocturia and Denies nipple discharge Musculoskeletal: Musculoskeletal: Denies abnormal gait, Reports back pain, Denies deformity, Reports arthralgias, Denies joint swelling and Denies stiffness Integumentary/Breasts: Skin/Breast: Denies breast pain, Denies breast mass and Denies nipple discharge Neurologic: Denies abnormal gait, Reports dizziness, Denies syncope, Denies headache(s), Denies seizure-like activity and Reports weakness Psychiatric: Psychiatric: Denies abnormal sleep pattern, Denies anxiety, Denies depression, Denies panic attacks and Reports other (Attention deficit disorder) Endocrine: Endocrine: Denies excessive sweating, Reports fatigue, Denies heat intolerance, Denies polyphagia, Denies polydipsia and Denies polyuria Hematologic/Lymphatic: Hematologic/Lymphatic: Denies easy bleeding and Denies easy bruising Allergic/Immunologic: Allergic/Immunologic: Denies wheezing PMFSH Past Medical History Medical History (Updated 04/24/20 @ 15:54 by Britta Landeros MD) Arthritis Attention deficit disorder Constipation Hypothyroidism Obesity Sensitive to concentration of IV drug Family History Family History (Updated 04/24/20 @ 15:55 by Britta Landeros MD) Father Heart disease Mother Stroke Brother No problems noted. Brother No problems noted. Daughter No problems noted. Family history: reviewed and not pertinent Surgical History Surgical History (Updated 04/24/20 @ 15:54 by Britta Landeros MD) H/O dilation and curettage History of adenoidectomy History of bilateral hip replacements Social History Social History (Updated 04/24/20 @ 15:56 by Britta Landeros MD) Household Members: Significant Other Housing: House Housing Other:: Part of care home community Do you presently have visiting nurse or other home services: No Alcohol intake: never Smoking Status: Former smoker Tobacco Type: Cigarette Years Smoked: 5 Smoked in Last 30 Days: No Smoking Quit Date: Age 26 Patient Interested in Nicotine Replacement: No Use of substances other than those prescribed or required for medical reasons: No Currently Displaying Signs/Symptoms of Drug Intoxication Withdrawal: No Have you been hit, kicked, punched, or otherwise hurt by someone within the past year? If so, by whom?: No Do you feel safe in your current relationship?: Yes Is there a partner from a previous relationship who is making you feel unsafe now?: No Are you made to feel afraid or neglected: No Advance Directives: No Advance Directives Information Provided: Yes Advance Directives on File: Yes Do you have thoughts of harming others: None Do you have a plan to hurt others: No Plan Recently lost weight without trying: No service: No Current occupational status: retired Meds Allergies Allergy/AdvReac Type Severity Reaction Status Date / Time lidocaine Allergy Unknown Unknown Verified 04/24/20 15:56 almond Allergy Rash Verified 04/24/20 15:56 No Known Allergies Allergy Unverified 04/24/20 15:56 [No Known Allergies*] alcohol Allergy Unknown Dizziness Uncoded 04/24/20 15:56 Active Medications: Current Medications Generic Name Dose Route Start Last Admin Trade Name Freq PRN Reason Stop Dose Admin Acetaminophen 650 mg 04/23/20 17:52 04/23/20 23:58 Acetaminophen 325 Mg Tablet PO 325 mg Q4H PRN Administration Fever Sodium Chloride 1,000 mls @ 100 mls/hr 04/23/20 17:52 04/24/20 05:26 Ns IVCONT 100 mls/hr .Q10H ADRY Administration Piperacillin Sod/Tazobactam 50 mls @ 100 mls/hr 04/24/20 00:00 04/24/20 12:22 Sod 3.375 gm/ Sodium Chloride IV Infused Q6H ADRY Infusion Morphine Sulfate 2 mg 04/23/20 17:52 Morphine Sulfate 2 Mg/Ml Cartridge IVPUSH Q3H PRN Pain, Moderate (Pain Scale 4-6 Morphine Sulfate 4 mg 04/23/20 17:52 Morphine Sulfate 4 Mg/Ml Cartridge IVPUSH Q3H PRN Pain, Severe (Pain Scale 7-10) Ondansetron HCl 4 mg 04/23/20 17:52 Ondansetron Hcl 4 Mg/2 Ml Vial IVPUSH Q8H PRN Nausea Oxycodone HCl 10 mg 04/23/20 17:52 Oxycodone Hcl Immed Release 5 Mg Tablet PO Q3H PRN Pain, Severe (Pain Scale 7-10) Oxycodone HCl 5 mg 04/23/20 17:52 04/24/20 04:25 Oxycodone Hcl Immed Release 5 Mg Tablet PO 5 mg Q3H PRN Administration Pain, Moderate (Pain Scale 4-6 Sodium Chloride 3 ml 04/24/20 00:00 04/24/20 08:19 0.9 % Sodium Chloride Flush 3 Ml Syringe [facility]USH [facility] Medication Instructions Recorded Confirmed Last Taken Type celecoxib 100 mg capsule 100 mg PO BID 01/21/20 04/21/20 Unknown History dextroamphetamine-amphetamine 20 1 tab PO DAILY 01/21/20 04/21/20 Unknown History mg tablet dextroamphetamine-amphetamine ER 1 cap PO QAM 01/21/20 04/21/20 Unknown History 10 mg 24hr capsule,extend release lactulose 10 gram/15 mL oral 3 PO PRN 01/21/20 04/21/20 Unknown History solution Physical Exam Vital Signs: Vital Signs: Last Vital Signs Temp 98 F 04/24/20 15:45 Pulse 92 04/24/20 15:45 Resp 15 04/24/20 15:45 BP 111/61 04/24/20 15:45 Pulse Ox 93 04/24/20 15:45 Body Mass Index 30.0 Const: Other: Wearing glasses General: cooperative, healthy appearing, comfortable, no acute distress and well developed Nutritional Appearance: obese Orientation/consciousness: patient oriented x3 Limitations: no limitations HENMT: Head: Yes normal to inspection, Yes normocephalic and Yes atraumatic Mouth: oropharynx normal and moist mucous membranes Eyes: General: appearance normal, both eyes and all related structures Sclerae: sclerae normal EOM: EOMs intact bilaterally Neck: Neck: Yes normal visual inspection, Yes full ROM and Yes no ly mphadenopathy Thyroid: Thyroid normal Chest: Chest palpation & inspection: normal inspection of the chest Resp: Effort & Inspection: normal respiratory effort and able to speak in complete sentences Auscultation: clear to auscultation bilaterally, no crackles, no rales, no rhonchi and no wheezes Cardio: Rate: regular rate Heart sounds: S1 normal heart sound present and S2 normal heart sound present GI: Other: Interventional Radiology placed drain in right lower quadrant with bulb suction attached draining purulence material that is only scant in volume. Inspection: Yes distended (Mildly) and Yes obesity Palpation (GI): Soft to palpation, nontender, no guarding and no hernias Rectal Exam - Female: deferred Skin: General skin exam: no rashes or lesions noted and no jaundice Wounds: no wounds Hair: normal Nails: normal Neuro: General: patient oriented x3 Cranial nerves: Yes CN's II-XII intact bilaterally Cognition (Neuro): normal cognition Gait exam (Neuro): Normal gait present Extrem: General: Yes normal to inspection, Yes full ROM, Yes no clubbing, cyanosis or edema and Yes no calf tenderness Psych: Appearance: grossly normal Mental Status: mental status grossly normal Speech and movement: Normal speech and movement present Affect: normal affect Attitude: cooperative Thought process: Normal thought process present Thought content: Normal thought content present Insight: Good insight present (Psych) Judgement: Good judgement present (Psych) Results Results Labs: BMP 04/24/20 07:08 Sodium 136 Potassium 4.2 Chloride 101 Carbon Dioxide 24 BUN 17 H Creatinine 0.73 Calcium 8.2 L Liver Function 04/24/20 Range/Units 07:08 Total Bilirubin 1.0 (0.0-1.0) mg/dL AST 38 H D (5-31) U/L ALT 57 H (0-31) U/L Alkaline Phosphatase 117 (39-117) U/L Albumin 2.8 L (3.5-5.0) g/dL Urine 04/23/20 Range/Units 22:47 Urine Color VADIM Urine Appearance CLEAR Urine pH 5.5 (5.0-8.0) Ur Specific [place] <= 1.005 (1.005-1.025) Urine Protein NEG (NEG-TRACE) MG/DL Urine Glucose (UA) NEG (NEG) MG/DL Assessment and Plan (1) Acute appendicitis with perforation and peritoneal abscess: Status: Acute This is a 80-year-old lady with perforated appendicitis with intra- abdominal abscess with mostly gas component to the abscess. Patient underwent interventional radiology placement of a drain in the abscess collection. Patient appears to be doing well she has no evidence of peritonitis or sepsis. She has a normal white blood cell count and her pain is well controlled. I will start the patient on clear liquid diet. I will continue Zosyn for IV antibiotics. We will follow up on blood cultures drawn yesterday. If patient is noted to be doing well tomorrow she will have her diet advanced and at some point will be discharged home with the drain to follow up with me as an outpatient for repeat CT scan to confirm that the intra-abdominal abscess was completely resolved. I discussed this at length with the patient and her significant other by phone. She and he agreed to proceed with the above-noted plan.
--- NOTE | 2020-04-24 16:53 | PC.NURSE ---
P-patient NPO I-call placed to Dr. Reyes e-awaiting order
[2020-04-24] MEDS: 0.9 % Sodium Chloride Flush 3 ML SYRINGE IVFLUSH (16:59)
[2020-04-25] MEDS: Piperacillin Sodium/Tazobactam 3.375 GM in 0.9 % Sodium Chloride 50 ML IV ×4 (00:19→18:03)
[2020-04-25] MEDS: 0.9 % Sodium Chloride 1,000 ML 100 ML IVCONT (02:28)
[2020-04-25 04:00] VITALS: BP 125/68; PULSE 100; RESP 16; TEMP 36.8; O2SAT 92
[2020-04-25 08:00] VITALS: BP 139/70; PULSE 97; RESP 15; TEMP 36.6; O2SAT 91
--- NOTE | 2020-04-25 10:40 | P.PNGS_ITS ---
Subjective Subjective Date of Service: 04/25/20 Interval history: says she had crampy pain with oral intake otherwise, says she just has some vague discomfort, better than yesterday denies flatus - says she has problems with constipation from before Physical Exam Vital Signs: Vital Signs: Last Vital Signs Temp 97.8 F 04/25/20 08:00 Pulse 97 04/25/20 08:00 Resp 15 04/25/20 08:00 BP 139/70 04/25/20 08:00 Pulse Ox 91 L 04/25/20 08:00 Body Mass Index 30.0 Const: General: no acute distress Resp: Effort & Inspection: normal respiratory effort Cardio: Rhythm: regular rhythm GI: Other: some distension but soft, drain in place, output purulent no guarding or rebound Progress Note: A&P Assessment and plan (1) Acute appendicitis with perforation and peritoneal abscess: Status: Acute Assessment and Plan: S/P CT drainage continue IV abx keep on clears for now - appears to have some ileus drain in place, functioning encouraged to get out of bed, ambulate labs ordered for tomorrow no fever explained plan to pt - also updated her brother by phone Dr. Wahl at [phone] as pt requested Fall Risk Details Current Medications: Current Medications Generic Name Dose Route Start Last Admin Trade Name Cezar PRN Reason Stop Dose Admin Acetaminophen 650 mg 04/23/20 17:52 04/23/20 23:58 Acetaminophen 325 Mg Tablet PO 325 mg Q4H PRN Administration Fever Sodium Chloride 1,000 mls @ 100 mls/hr 04/23/20 17:52 04/25/20 02:28 Ns IVCONT 100 mls/hr .Q10H ADRY Administration Piperacillin Sod/Tazobactam 50 mls @ 100 mls/hr 04/24/20 00:00 04/25/20 06:56 Sod 3.375 gm/ Sodium Chloride IV Infused Q6H ADRY Infusion Morphine Sulfate 2 mg 04/23/20 17:52 Morphine Sulfate 2 Mg/Ml Cartridge IVPUSH Q3H PRN Pain, Moderate (Pain Scale 4-6 Morphine Sulfate 4 mg 04/23/20 17:52 Morphine Sulfate 4 Mg/Ml Cartridge IVPUSH Q3H PRN Pain, Severe (Pain Scale 7-10) Ondansetron HCl 4 mg 04/23/20 17:52 Ondansetron Hcl 4 Mg/2 Ml Vial IVPUSH Q8H PRN Nausea Oxycodone HCl 10 mg 04/23/20 17:52 Oxycodone Hcl Immed Release 5 Mg Tablet PO Q3H PRN Pain, Severe (Pain Scale 7-10) Oxycodone HCl 5 mg 04/23/20 17:52 04/24/20 04:25 Oxycodone Hcl Immed Release 5 Mg Tablet PO 5 mg Q3H PRN Administration Pain, Moderate (Pain Scale 4-6 Sodium Chloride 3 ml 04/24/20 00:00 04/25/20 00:22 0.9 % Sodium Chloride Flush 3 Ml Syringe IVFLUSH Not Given QSHIFT ADRY Time Spent With Patient Time: Total time spent is greater than 50% in coordination of care (as documented) at patient's floor/unit and/or counseling patient: Time with patient: Greater than 35 minutes
[2020-04-25] MEDS: Acetaminophen 325 MG TABLET 650 MG PO (11:33)
[2020-04-25 12:00] VITALS: BP 140/71; PULSE 93; RESP 19; TEMP 37.1; O2SAT 91
--- NOTE | 2020-04-25 14:28 | PM.EVENT ---
Event Note Date of Service: 04/25/20 Event Note: has been out of bed, on recliner since this morning feeling better passing flatus abd soft will advance diet decrease IVF improving
[2020-04-25] MEDS: 0.9 % Sodium Chloride 1,000 ML 60 ML IVCONT (15:41)
[2020-04-25 15:58] VITALS: BP 167/78; PULSE 96; RESP 14; TEMP 37; O2SAT 92
[2020-04-25 19:27] VITALS: BP 188/95; PULSE 105; RESP 18; TEMP 36.3; O2SAT 90
[2020-04-25 23:52] VITALS: BP 173/95; PULSE 97; RESP 18; TEMP 36.7; O2SAT 92
[2020-04-26] VITALS (7 sets, daily range): BP systolic 160–185; BP diastolic 71–89; PULSE 84–101; RESP 14–19; TEMP 36.8–37; O2SAT 92–96
[2020-04-26] MEDS: Piperacillin Sodium/Tazobactam 3.375 GM in 0.9 % Sodium Chloride 50 ML IV ×5 (00:16→23:29)
[2020-04-26] MEDS: 0.9 % Sodium Chloride 1,000 ML 60 ML IVCONT (05:56)
[2020-04-26 06:09] LABS: Hematocrit 30.6 % (37-47); Hemoglobin 11.1 g/dl (12.0-16.0); Mean Corpuscular HGB Conc 36.3 g/dl (31.0-35.0); Mean Corpuscular Hemoglobin 30.9 pg (27.0-33.0); Mean Corpuscular Volume 85.2 fL (80-98); Mean Platelet Volume 11.9 fL (9.4-12.3); Platelet Count 286 X10*3/uL (160-400); Red Blood Count 3.59 X10*6/uL (4.20-5.50); Red Cell Distribution Width 13.3 % (11.0-16.0); White Blood Count 26.8 X10*3/uL (4.8-10.8)
[2020-04-26 06:36] LABS: Anion Gap 11 (12-20); Blood Urea Nitrogen 13 mg/dL (9-16); Calcium 7.5 mg/dL (8.4-10.2); Carbon Dioxide 24 mmol/L (22-29); Chloride 103 mmol/L (96-108); Creatinine Clr Calc Pharmacy 77.4; Estimated Glomerular Filt Rate > 60; Glucose Random 94 mg/dL (60-115); Potassium 3.3 mmol/L (3.3-5.1); Sodium 135 mmol/L (135-145)
--- NOTE | 2020-04-26 07:49 | P.PNGS_ITS ---
Subjective Subjective Date of Service: 04/26/20 <Mary Kendall PA-C - Last Filed: 04/26/20 07:55> 04/26/20 <Britta Landeros MD - Last Filed: 04/26/20 09:31> Interval history: Feels mixed this morning. Had some b/l lower crampy abdominal pain yesterday, improved through out the day. Passing flatus but no BM. Reports constipation at baseline. Tolerating small amount of solid food. Denies nausea but feels bloated. OOB to commode. <Mary Kendall PA-C - Last Filed: 04/26/20 07:55> Patient seen and examined and physician operator assistant i cementing note reviewed. Patient reports she feels better than she did yesterday when she has significant crampy abdominal pain. She reports having soreness in bilateral lower quadrant to the suprapubic region this morning. Patient had not gotten out of bed to walk since admission. Patient had some low oxygen saturations of 90-91% on room air and now is on oxygen by nasal cannula with improvement in oxygen saturations. She does report feeling of slightly short of breath. Urine output has been normal. Vital signs have been within normal range with the exception of slight hypertension with systolic blood pressures in the 150s to 160s range. Patient has had normal heart rate. White blood cell count has increased to 26 from admission of 5.6. On physical exam patient is well appearing comfortable sitting in the chair in no apparent distress. She is wearing glasses. Examination abdomen shows a soft mildly distended minimally tender abdomen to deep palpation in the right lower quadrant left lower quadrant suprapubic regions. There is no rebound or guarding. There is a right lower quadrant drain in place with purulent drainage in the bulb. Extremities are soft without edema. There is mild tenderness to light palpation of the left lower extremity in the calf region and anterior patel region which patient reports is baseline. Assessment and plan: This is a 80-year-old lady admitted with perforated diverticulitis with intra-abdominal abscess status post interventional radiology placed drain in the periappendiceal abscess. There is still purulent drainage. There is an increasing white blood cell count and also some shortness of breath and low oxygen saturations. We will send the patient down for repeat CT scan of the abdomen and pelvis to evaluate whether there is any undrained portion of the abscess and also patient will undergo a CT scan of the chest with PE protocol to rule out pulmonary embolism given her pulmonary symptoms. <Britta Landeros MD - Last Filed: 04/26/20 09:31> Physical Exam Vital Signs: Vital Signs: Last Vital Signs Temp 98.2 F 04/26/20 07:32 Pulse 86 04/26/20 07:32 Resp 18 04/26/20 07:32 BP 164/76 H 04/26/20 07:32 Pulse Ox 93 04/26/20 07:32 Body Mass Index 30.0 <Mary Kendall PA-C - Last Filed: 04/26/20 07:55> Const: General: comfortable, no acute distress and alert <Mary Kendall PA-C - Last Filed: 04/26/20 07:55> Orientation/consciousness: patient oriented x3 <NAT Le - Last Filed: 04/26/20 07:55> Eyes: Sclerae: sclerae normal <NAT Le - Last Filed: 04/26/20 07:55> Resp: Effort & Inspection: normal respiratory effort <Mary Kendall PA-C - Last Filed: 04/26/20 07:55> Cardio: Rate: regular rate <Mary Kendall PA-C - Last Filed: 04/26/20 07:55> GI: Other: RLQ pigtail drain with purulent output <Mary Kendall PA-C - Last Filed: 04/26/20 07:55> Inspection: Yes distended (mild) <Mary Kendall PA-C Last Filed: 04/26/20 07:55> Palpation (GI): Soft to palpation, Tenderness to palpation present (GI) (LLQ and RLQ, moderate), no guarding, not rigid and No Rebound tenderness present <Mary Kendall PA-C Last Filed: 04/26/20 07:55> Skin: General skin exam: no rashes or lesions noted <Mary Kendall PA-C Last Filed: 04/26/20 07:55> Neuro: General: patient oriented x3 <Mary Kendall PA-C - Last Filed: 04/26/20 07:55> Extrem: General: Yes no clubbing, cyanosis or edema <SITA Le Last Filed: 04/26/20 07:55> Progress Note: A&P Assessment and plan (1) Acute appendicitis with perforation and peritoneal abscess: Problem details: s/p IR drainage on 04/24/20 <SITA Le Last Filed: 04/26/20 07:55> Status: Acute <SITA Le Last Filed: 04/26/20 07:55> Assessment and Plan: S/p IR drainage, on IV zosyn. Reports crampy abd pain, has some e vidence of GI fxn. Abd- soft, slightly distended, RLQ and LLQ moderately tender. Drain continues with purulent drainage. Abscess cx positive for Strep Viridans and gram neg rods. WBC improved yesterday- now increased to 26. Will repeat CT scan today. Further plan dependent on results. Hold tray. Cont IV zosyn, IVF. Encouraged OOB and ambulation today. Encouraged IS use- is requiring supplemental O2- likely with some atelectasis. <SITA Le Last Filed: 04/26/20 07:55> Fall Risk Details Current Medications: Current Medications Generic Name Dose Route Start Last Admin Trade Name Freq PRN Reason Stop Dose Admin Acetaminophen 650 mg 04/23/20 17:52 04/25/20 11:33 Acetaminophen 325 Mg Tablet PO 650 mg Q4H PRN Administration Fever Amphetamine/Dextroamphetamine 20 mg 04/26/20 09:00 Amphetamine Mixed Salts 20 Mg Tablet PO DAILY ADRY Sodium Chloride 1,000 mls @ 60 mls/hr 04/23/20 17:52 04/26/20 05:56 Ns IVCONT 60 mls/hr .[id number] ADRY Administration Piperacillin Sod/Tazobactam 50 mls @ 100 mls/hr 04/24/20 00:00 04/26/20 06:58 Sod 3.375 gm/ Sodium Chloride IV Infused Q6H ADRY Infusion Morphine Sulfate 2 mg 04/23/20 17:52 Morphine Sulfate 2 Mg/Ml Cartridge IVPUSH Q3H PRN Pain, Moderate (Pain Scale 4-6 Morphine Sulfate 4 mg 04/23/20 17:52 Morphine Sulfate 4 Mg/Ml Cartridge IVPUSH Q3H PRN Pain, Severe (Pain Scale 7-10) Patient Own 1.5 each 04/26/20 06:30 04/26/20 05:56 Medication (Package Lift Operator PO 1.5 each Thyroid 60 Mg) DAILY@0630 [facility] Administration Ondansetron HCl 4 mg 04/23/20 17:52 Ondansetron Hcl 4 Mg/2 Ml Vial IVPUSH Q8H PRN Nausea Oxycodone HCl 10 mg 04/23/20 17:52 Oxycodone Hcl Immed Release 5 Mg Tablet PO Q3H PRN Pain, Severe (Pain Scale 7-10) Oxycodone HCl 5 mg 04/23/20 17:52 04/24/20 04:25 Oxycodone Hcl Immed Release 5 Mg Tablet PO 5 mg Q3H PRN Administration Pain, Moderate (Pain Scale 4-6 Sodium Chloride 3 ml 04/24/20 00:00 04/26/20 06:58 0.9 % Sodium Chloride Flush 3 Ml Syringe IVFLUSH Not Given QSHIFT [facility] <Mary Kendall PA-C - Last Filed: 04/26/20 07:55> Time Spent With Patient Time: Total time spent is greater than 50% in coordination of care (as documented) at patient's floor/unit and/or counseling patient: <Mary Kendall PA-C - Last Filed: 04/26/20 07:55> Time with patient: 15 - 24 minutes <Mary Kendall PA-C - Last Filed: 04/26/20 07:55>
--- NOTE | 2020-04-26 08:23 | PM.EVENT ---
Late Entry: 04/24/20 Noticed pt was allergic to Lidocaine, spoke with Radiologist Dr Zepeda and also called the Pharmarcy. Pharmacist stated Pt had lidocaine with epinephrine back in Jan, 2019 --no reaction noted. Lidocaine !% given by radiologist Dr Zepeda no reaction noted during the procedure and post-procedure.
[2020-04-26] MEDS: Amphetamine Mixed Salts 20 MG TABLET PO (09:21)
[2020-04-26] MEDS: Potassium Chloride Packet 20 MEQ PACKET 40 MEQ PO (10:32)
[2020-04-26] MEDS: iohexoL 350 MG/ML 100 ML INFUS..BTL IV (13:51)
--- NOTE | 2020-04-26 17:42 | P.HPHOSP_ITS ---
History of Present Illness Date of Service: 04/26/20 Chief Complaint: Medical management 80 year female with HTN, hypothyroidism who is admitted to surgical service for perforated appendicitis and is s/p percutaneous drain. Presently is doing fine hs no specific complaint. O2 sat was reportedly low and CT of chest was done and shows small bilateral P. effusion. There is no fever. Covid was negative on admission. Pain is controlled. She meets sepsis criteria with elevated HR and increased WBC but clinically is non-toxic. No oter complaint at this time. Review of Systems Review of Systems: Gen: no fever Resp: no sob, no cough CV: no chest, no DE LA ROSA, no leg edema GI: No n/v, no abd pain Neuro: No confusion Yes all other systems are reviewed and are negative [facility] Medical History (Updated 04/27/20 @ 08:39 by Britta Landeros MD) Arthritis Attention deficit disorder Constipation Hypothyroidism Obesity Sensitive to concentration of IV drug Family History (Updated 04/24/20 @ 15:55 by Britta Landeros MD) Father Heart disease Mother Stroke Brother No problems noted. Brother No problems noted. Daughter No problems noted. Family history: reviewed and not pertinent Surgical History (Updated 04/24/20 @ 15:54 by Britta Landeros MD) H/O dilation and curettage History of adenoidectomy History of bilateral hip replacements Social History Household Members: Significant Other Housing: House Housing Other:: [facility] of [facility] Do you presently have visiting nurse or other home services: No Alcohol intake: never Smoking Status: Former smoker Tobacco Type: Cigarette Years Smoked: 5 Smoked in Last 30 Days: No Smoking Quit Date: Age 26 Patient Interested in Nicotine Replacement: No Use of substances other than those prescribed or required for medical reasons: No Currently Displaying Signs/Symptoms of Drug Intoxication Withdrawal: No Have you been hit, kicked, punched, or otherwise hurt by someone within the past year? If so, by whom?: No Do you feel safe in your current relationship?: Yes Is there a partner from a previous relationship who is making you feel unsafe now?: No Are you made to feel afraid or neglected: No Advance Directives: No Advance Directives Information Provided: Yes Advance Directives on File: Yes Do you have thoughts of harming others: None Do you have a plan to hurt others: No Plan Recently lost weight without trying: No service: No Current occupational status: retired Meds Allergies Allergy/AdvReac Type Severity Reaction Status Date / Time lidocaine Allergy Unknown Unknown Verified 04/24/20 15:56 almond Allergy Rash Verified 04/24/20 15:56 No Known Allergies Allergy Verified 04/26/20 07:02 [No Known Allergies*] alcohol Allergy Unknown Dizziness Uncoded 04/24/20 15:56 Active Medications: Current Medications Generic Name Dose Route Start Last Admin Trade Name Freq PRN Reason Stop Dose Admin Acetaminophen 650 mg 04/23/20 17:52 04/25/20 11:33 Acetaminophen 325 Mg Tablet PO 650 mg Q4H PRN Administration Fever Amphetamine/Dextroamphetamine 20 mg 04/26/20 09:00 04/26/20 09:21 Amphetamine Mixed Salts 20 Mg Tablet PO 5 mg DAILY ADRY Administration Sodium Chloride 1,000 mls @ 60 mls/hr 04/23/20 17:52 04/26/20 05:56 Ns IVCONT 60 mls/hr .[id number] ADRY Administration Piperacillin Sod/Tazobactam 50 mls @ 100 mls/hr 04/24/20 00:00 04/26/20 17:42 Sod 3.375 gm/ Sodium Chloride IV Infused Q6H ADRY Infusion Morphine Sulfate 2 mg 04/23/20 17:52 Morphine Sulfate 2 Mg/Ml Cartridge IVPUSH Q3H PRN Pain, Moderate (Pain Scale 4-6 Morphine Sulfate 4 mg 04/23/20 17:52 Morphine Sulfate 4 Mg/Ml Cartridge IVPUSH Q3H PRN Pain, Severe (Pain Scale 7-10) Patient Own 1.5 each 04/26/20 06:30 04/26/20 05:56 Medication (Ship Keeper PO 1.5 each Thyroid 60 Mg) DAILY@0630 ADRY Administration Ondansetron HCl 4 mg 04/23/20 17:52 Ondansetron Hcl 4 Mg/2 Ml Vial IVPUSH Q8H PRN Nausea Oxycodone HCl 10 mg 04/23/20 17:52 Oxycodone Hcl Immed Release 5 Mg Tablet PO Q3H PRN Pain, Severe (Pain Scale 7-10) Oxycodone HCl 5 mg 04/23/20 17:52 04/24/20 04:25 Oxycodone Hcl Immed Release 5 Mg Tablet PO 5 mg Q3H PRN Administration Pain, Moderate (Pain Scale 4-6 Sodium Chloride 3 ml 04/24/20 00:00 04/26/20 14:46 0.9 % Sodium Chloride Flush 3 Ml Syringe IVFLUSH Not Given QSHIFT [facility] Home Medications Medication Instructions Recorded Confirmed Last Taken Type celecoxib 100 mg capsule 100 mg PO BID 01/21/20 04/21/20 Unknown History dextroamphetamine-amphetamine 20 1 tab PO DAILY 01/21/20 04/25/20 Unknown History mg tablet dextroamphetamine-amphetamine ER 1 cap PO QAM 01/21/20 04/21/20 Unknown History 10 mg 24hr capsule,extend release lactulose 10 gram/15 mL oral 3 PO PRN 01/21/20 04/21/20 Unknown History solution Physical Exam Vital Signs and Narrative: Vital Signs: Last Vital Signs Temp 98.6 F 04/26/20 15:48 Pulse 90 04/26/20 17:41 Resp 17 04/26/20 15:48 BP 175/84 H 04/26/20 17:41 Pulse Ox 94 04/26/20 17:41 Body Mass Index 30.0 Constitutional Awake and Alert, No apparent distress Neck Supple, No lymphadenopathy Cardiovascular RRR, No M/R/G, S1 S2, No S3 S4, No pedal edema Respiratory Lungs clear, No respiratory distress Gastrointestinal Non tender, Non-distended Skin No rash Neurological Alert & oriented x3 Psychological Appropriate affect Results Labs CBC and Chem 7: 04/27/20 04:02 04/27/20 04:02 Labs: Laboratory Results - last 24 hr 04/26/20 04/26/20 05:43 05:43 MCV 85.2 MCH 30.9 MCHC 36.3 H RDW 13.3 Plt Count 286 D MPV 11.9 Absolute Nucleated RBC 0.000 Nucleated RBC % (auto) 0.0 Anion Gap 11 L Estim Creat Clear Calc 77.4 Estimated GFR > 60 Random Glucose 94 Calcium 7.5 L D Imaging Radiologist's Impressions: Impressions Abdomen/Pelvis CT 04/26/20 12:45 IMPRESSION: Interval development of small bilateral pleural effusions with right lower lobe disease which may relate to atelectasis or pneumonitis. Periappendiceal abscess decompressed with trained in place. Moderate amount of free fluid about the pelvis as described in multiple locations, none of which containing gas bubbles. Gas within the urinary bladder. Clinical correlation with Porter catheter or recent intervention suggested. Chest CTA 04/26/20 12:45 IMPRESSION: No pulmonary embolus seen. Left greater than right small bilateral pleural effusions and associated bibasilar consolidation, at least in part compressive atelectasis. VTE: negative Assessment and Plan (1) HTN (hypertension): Status: Acute 80/F with hypothyroidism, likely undiagnosed HTN here with perforated appendicitis s/p percutaneous drain 1. Perforated appendicitis s/p drain, sepsis, abscess culture = strep viridan--Zosyn, should be ok, but can simplify w/ Ceftriaxone but wait for sens itivit 2. HTN--not on BP meds, start Norvasc 5 daily and reassess 3. Hypothyroidism--continue Levothyroxine 4. Pleural efffusion--likely atelecatasis and not pneumonia--recommend incentive spirometry, she doesn't need oxygen at this time.
[2020-04-26] MEDS: 0.9 % Sodium Chloride Flush 3 ML SYRINGE IVFLUSH (23:31)
[2020-04-27] VITALS (8 sets, daily range): BP systolic 162–180; BP diastolic 80–90; PULSE 77–102; RESP 18–19; TEMP 36.5–37.5; O2SAT 91–94
[2020-04-27 05:01] LABS: Hematocrit 32.1 % (37-47); Hemoglobin 11.4 g/dl (12.0-16.0); Mean Corpuscular HGB Conc 35.5 g/dl (31.0-35.0); Mean Corpuscular Hemoglobin 30.6 pg (27.0-33.0); Mean Corpuscular Volume 86.3 fL (80-98); Mean Platelet Volume 12.6 fL (9.4-12.3); Platelet Count 323 X10*3/uL (160-400); Red Blood Count 3.72 X10*6/uL (4.20-5.50); Red Cell Distribution Width 13.6 % (11.0-16.0); White Blood Count 21.1 X10*3/uL (4.8-10.8)
[2020-04-27 05:27] LABS: Anion Gap 14 (12-20); Blood Urea Nitrogen 10 mg/dL (9-16); Calcium 7.6 mg/dL (8.4-10.2); Carbon Dioxide 25 mmol/L (22-29); Chloride 100 mmol/L (96-108); Estimated Glomerular Filt Rate > 60; Glucose Random 85 mg/dL (60-115); Potassium 3.5 mmol/L (3.3-5.1); Sodium 135 mmol/L (135-145)
[2020-04-27] MEDS: Piperacillin Sodium/Tazobactam 3.375 GM in 0.9 % Sodium Chloride 50 ML IV ×3 (05:30→17:51)
--- NOTE | 2020-04-27 08:34 | P.PNGS_ITS ---
Subjective Subjective Date of Service: 04/27/20 Interval history: Patient reports feeling much better today. She has mild soreness bilateral lower quadrants and suprapubic region. She reports she has not had a bowel movement since she has been admitted. She is taking her Norvell Thyroid from her home medications which is non formulary. Patient denies any nausea vomiting is tolerating a diet well. White blood cell count is down to 21.1 from 20/[address] scan of the abdomen shows some small fluid collections in the pelvis which were not loculated have no gas in them. The periappendiceal abscess is decompressed with the drain in place. The CT scan of the chest shows possible pneumonia in the right lower lung with bilateral small pleural effusions. Patient had been on oxygen yesterday but is now on room air with oxygen saturations ranging from 92-94 range. Patient has not been ambulating as much as she should and was not using incentive spirometer as often as she should. Patient was encouraged to do both and is agreeable. Vital signs are relatively normal with the exception of systolic blood pressures running from the 160s to 170s range. Norvasc was added by the hospitalist from consultation yesterday. Microbiology performed on cultures from the abscess cavity are growing E coli and strep viridans sensitivities have not resulted yet. Patient is currently receiving Zosyn which should cover both of those organisms. Physical Exam Vital Signs: Vital Signs: Last Vital Signs Temp 98.6 F 04/27/20 07:29 Pulse 85 04/27/20 07:29 Resp 18 04/27/20 07:29 BP 174/90 H 04/27/20 07:29 Pulse Ox 92 04/27/20 07:29 Body Mass Index 30.0 Const: General: cooperative, healthy appearing, comfortable, no acute distress and well developed Eyes: Other: Wearing glasses Visual Damico: normal visual damico by confrontation Eyelids: Yes eyelids normal Conjunctivae: conjunctivae normal Sclerae: sclerae normal EOM: EOMs intact bilaterally GI: Inspection: No Abdominal wall edema, Yes distended (Minimally), No incision and Yes obesity Palpation (GI): Soft to palpation, Tenderness to palpation present (GI) (Mildly tender to palpation in the bilateral lower quadrants and suprapubic ) and no guarding Extrem: General: Yes normal to inspection, Yes full ROM, Yes no pedal edema and Yes no calf tenderness Progress Note: A&P Assessment and plan (1) Right lower lobe pneumonia: Status: Acute Assessment and Plan: CT scan abdomen and pelvis along with chest showed possible right lower lobe pneumonia. Patient is currently on Zosyn and we obtained a medicine consultation yesterday. There was no recommendation to change antibiotics for this right lower lobe pneumonia. We will continue Zosyn for treatment of pneumonia in addition to the periappendiceal abscess from the perforated appendicitis. Patient will increase ambulation to at least 4 times a day and use incentive spirometer every hour. (2) Acute appendicitis with perforation and peritoneal abscess: Problem details: s/p IR drainage on 04/24/20 Status: Acute Assessment and Plan: Patient currently being treated with IR drainage with good control of periappendiceal abscess. CT scan shows decompression of abscess cavity and there is been decrease in the output from the interventional Radiology placed drain. The output is also more watery in consistency but is still purulence. White blood cell count is also decreasing. Organisms that have grown from the abscess culture are E coli and strep viridans which are currently being treated with Zosyn. We will await sensitivities of those medications before transitioning to p.o. medications for discharge. Fall Risk Details Current Medications: Current Medications Generic Name Dose Route Start Last Admin Trade Name Freq PRN Reason Stop Dose Admin Acetaminophen 650 mg 04/23/20 17:52 04/25/20 11:33 Acetaminophen 325 Mg Tablet PO 650 mg Q4H PRN Administration Fever Amlodipine Besylate 5 mg 04/27/20 09:00 Amlodipine Besylate 5 Mg Tablet PO DAILY [facility] Protocol Amphetamine/Dextroamphetamine 20 mg 04/26/20 09:00 04/26/20 09:21 Amphetamine Mixed Salts 20 Mg Tablet PO 5 mg DAILY ADRY Administration Piperacillin Sod/Tazobactam 50 mls @ 100 mls/hr 04/24/20 00:00 04/27/20 06:19 Sod 3.375 gm/ Sodium Chloride IV Infused Q6H ADRY Infusion Morphine Sulfate 2 mg 04/23/20 17:52 Morphine Sulfate 2 Mg/Ml Cartridge IVPUSH Q3H PRN Pain, Moderate (Pain Scale 4-6 Morphine Sulfate 4 mg 04/23/20 17:52 Morphine Sulfate 4 Mg/Ml Cartridge IVPUSH Q3H PRN Pain, Severe (Pain Scale 7-10) Patient Own 1.5 each 04/26/20 06:30 04/27/20 05:30 Medication (Industrial Electrician Journeyman PO 1.5 each Thyroid 60 Mg) DAILY@0630 ADRY Administration Ondansetron HCl 4 mg 04/23/20 17:52 Ondansetron Hcl 4 Mg/2 Ml Vial IVPUSH Q8H PRN Nausea Oxycodone HCl 10 mg 04/23/20 17:52 Oxycodone Hcl Immed Release 5 Mg Tablet PO Q3H PRN Pain, Severe (Pain Scale 7-10) Oxycodone HCl 5 mg 04/23/20 17:52 04/24/20 04:25 Oxycodone Hcl Immed Release 5 Mg Tablet PO 5 mg Q3H PRN Administration Pain, Moderate (Pain Scale 4-6 Sodium Chloride 3 ml 04/24/20 00:00 04/26/20 23:31 0.9 % Sodium Chloride Flush 3 Ml Syringe IVFLUSH 3 ml QSHIFT ADRY Administration Time Spent With Patient Time: Total time spent is greater than 50% in coordination of care (as documented) at patient's floor/unit and/or counseling patient: Time with patient: 15 - 24 minutes
[2020-04-27] MEDS: 0.9 % Sodium Chloride Flush 3 ML SYRINGE IVFLUSH ×2 (08:50→17:51)
[2020-04-27] MEDS: amLODIPine Besylate 5 MG TABLET PO (08:50)
[2020-04-27] MEDS: Amphetamine Mixed Salts 20 MG TABLET PO (08:50)
[2020-04-27] MEDS: Potassium Chloride Packet 20 MEQ PACKET 40 MEQ PO (08:51)
--- NOTE | 2020-04-27 08:52 | P.PNIM_ITS ---
Subjective Subjective Date of Service: 07/09/20 Interval History: Seen in f/u for medical management of HTN, atelectasis, in setting of perforated appendicitis s/p drain. She is doing well BP is high, O2 sat is 94% on RA Review of Systems Gen: no fever Resp: no sob, no cough CV: no chest, no DE LA ROSA, no leg edema GI: No n/v, no abd pain Neuro: No confusion Physical Exam Vital Signs: Vital Signs: Last Vital Signs Temp 98.6 F 04/27/20 07:29 Pulse 85 04/27/20 08:50 Resp 18 04/27/20 07:29 BP 174/90 H 04/27/20 08:50 Pulse Ox 92 04/27/20 07:29 Body Mass Index 30.0 General: AO X 3, no acute distress Resp: diminished at bases CVS: S1,S2,RRR GI: +BS, NT, no distention, drain with minimal output Skin: No rash Neuro: motor grossly intact Psych: appropriate affect Objective Data Current Medications Generic Name Dose Route Start Last Admin Trade Name Freq PRN Reason Stop Dose Admin Acetaminophen 650 mg 04/23/20 17:52 04/25/20 11:33 Acetaminophen 325 Mg Tablet PO 650 mg Q4H PRN Administration Fever Amlodipine Besylate 5 mg 04/27/20 09:00 04/27/20 08:50 Amlodipine Besylate 5 Mg Tablet PO 5 mg DAILY ADRY Administration Protocol Amphetamine/Dextroamphetamine 20 mg 04/26/20 09:00 04/27/20 08:50 Amphetamine Mixed Salts 20 Mg Tablet PO 20 mg DAILY ADRY Administration Piperacillin Sod/Tazobactam 50 mls @ 100 mls/hr 04/24/20 00:00 04/27/20 06:19 Sod 3.375 gm/ Sodium Chloride IV Infused Q6H ADRY Infusion Morphine Sulfate 2 mg 04/23/20 17:52 Morphine Sulfate 2 Mg/Ml Cartridge IVPUSH Q3H PRN Pain, Moderate (Pain Scale 4-6 Morphine Sulfate 4 mg 04/23/20 17:52 Morphine Sulfate 4 Mg/Ml Cartridge IVPUSH Q3H PRN Pain, Severe (Pain Scale 7-10) Patient Own 1.5 each 04/26/20 06:30 04/27/20 05:30 Medication (Children'S Minister PO 1.5 each Thyroid 60 Mg) DAILY@0630 ADRY Administration Ondansetron HCl 4 mg 04/23/20 17:52 Ondansetron Hcl 4 Mg/2 Ml Vial IVPUSH Q8H PRN Nausea Oxycodone HCl 10 mg 04/23/20 17:52 Oxycodone Hcl Immed Release 5 Mg Tablet PO Q3H PRN Pain, Severe (Pain Scale 7-10) Oxycodone HCl 5 mg 04/23/20 17:52 04/24/20 04:25 Oxycodone Hcl Immed Release 5 Mg Tablet PO 5 mg Q3H PRN Administration Pain, Moderate (Pain Scale 4-6 Sodium Chloride 3 ml 04/24/20 00:00 04/27/20 08:50 0.9 % Sodium Chloride Flush 3 Ml Syringe IVFLUSH 3 ml QSHIFT ADRY Administration Labs CBC & Chem 7: 04/28/20 05:28 04/28/20 05:28 Microbiology Microbiology Results: Microbiology 04/23/20 14:50 Blood - Venous Blood Culture - Preliminary 04/24/20 14:05 Abscess Intra-abdominal Gram Stain - Final 04/24/20 14:05 Abscess Intra-abdominal Routine Culture - Final Escherichia coli Streptococcus viridans group 04/24/20 14:05 Abscess Intra-abdominal Anaerobic Culture - Preliminary Culture in progress. 04/23/20 15:02 Blood - Venous Blood Culture - Preliminary No growth after 48 hours. Assessment and Plan (1) HTN (hypertension): Status: Acute Assessment and Plan: 80/F with hypothyroidism, likely undiagnosed HTN here with perforated appendicitis s/p percutaneous drain 1. Perforated appendicitis s/p drain sepsis, abscess culture = strep viridan. Clinically improving, WBC trending down -continue Zosyn, await sensitivity to further narrow antibiotics. 2. HTN likely undiagnosed--not on BP meds. Resistant to taking BP meds, however her brother a physician has talked her it is apropriate, so she will take the Norvasc 5 mg katherine 3. Hypothyroidism--continue Levothyroxine 4. Pleural efffusion--likely from atelecatasis and not pneumonia--recommend incentive spirometry, she doesn't need oxygen at this time. (2) Acute appendicitis with perforation and peritoneal abscess: Problem details: s/p IR drainage on 04/24/20 Status: Acute
--- NOTE | 2020-04-27 10:53 | MHC.CM.PN ---
Patient is not yet medically cleared for dc (IV Zosyn r/t Abscess/drain in place, elevated BP, and Patient reports no BM since admission). Home is the goal for dc and CM will follow for possible need to adjust the dc plan.
[2020-04-27] MEDS: Acetaminophen 325 MG TABLET 650 MG PO (21:06)
[2020-04-28] MEDS: Piperacillin Sodium/Tazobactam 3.375 GM in 0.9 % Sodium Chloride 50 ML IV ×2 (00:02→04:51)
[2020-04-28] MEDS: 0.9 % Sodium Chloride Flush 3 ML SYRINGE IVFLUSH ×2 (00:19→09:05)
[2020-04-28 04:00] VITALS: BP 162/84; PULSE 76; RESP 18; TEMP 36.6; O2SAT 93
[2020-04-28 06:07] LABS: Hematocrit 31.4 % (37-47); Hemoglobin 11.2 g/dl (12.0-16.0); Mean Corpuscular HGB Conc 35.7 g/dl (31.0-35.0); Mean Corpuscular Hemoglobin 30.3 pg (27.0-33.0); Mean Corpuscular Volume 84.9 fL (80-98); Platelet Count 314 X10*3/uL (160-400); Red Cell Distribution Width 13.3 % (11.0-16.0); White Blood Count 17.7 X10*3/uL (4.8-10.8)
[2020-04-28 06:43] LABS: Anion Gap 15 (12-20); Blood Urea Nitrogen 8 mg/dL (9-16); Calcium 7.4 mg/dL (8.4-10.2); Carbon Dioxide 23 mmol/L (22-29); Chloride 101 mmol/L (96-108); Creatinine Clr Calc Pharmacy 77.4; Estimated Glomerular Filt Rate > 60; Glucose Random 120 mg/dL (60-115); Potassium 3.6 mmol/L (3.3-5.1); Sodium 135 mmol/L (135-145)
[2020-04-28 08:00] VITALS: BP 178/85; PULSE 80; RESP 18; TEMP 37.1; O2SAT 95
[2020-04-28 09:01] VITALS: BP 178/85; PULSE 80
[2020-04-28] MEDS: amLODIPine Besylate 5 MG TABLET PO (09:01)
[2020-04-28] MEDS: Amphetamine Mixed Salts 20 MG TABLET PO (09:01)
--- NOTE | 2020-04-28 10:00 | P.PNGS_ITS ---
Subjective Subjective Date of Service: 04/28/20 Interval history: Patient reports feeling well today although she reports having some back soreness from the bed she is sleeping in. She denies any nausea vomiting. She is tolerating regular diet without difficulty. She reports her bilateral lower quadrant abdominal soreness is significantly improved although she is still having some abdominal bloating. She reports having some loose stools earlier today and just now but reports that they are starting to form up. Vital signs have been within normal limits with the exception of a slight hypertension. Patient is being treated now with an additional 5 mg of Norvasc that was added yesterday by the hospitalist. Patient's white blood cell count is continue to decrease and is now 17 from 06/05 days ago. Cultures are now final and there is coleman sensitivity of the E coli and strep viridans. Physical Exam Vital Signs: Vital Signs: Last Vital Signs Temp 98.7 F 04/28/20 08:00 Pulse 80 04/28/20 09:01 Resp 18 04/28/20 08:00 BP 178/85 H 04/28/20 09:01 Pulse Ox 95 04/28/20 08:00 Body Mass Index 30.0 Const: Other: Wearing glasses General: cooperative, healthy appearing, comfortable and no acute distress GI: Other: IR drain in place right lower quadrant with purulent drainage. There were only 40 mL of output over the past 24 hours. Palpation (GI): Soft to palpation, nontender, no guarding, no hernias and no masses Extrem: General: Yes normal to inspection, Yes full ROM, Yes no clubbing, cyanosis or edema and Yes no calf tenderness Progress Note: A&P Assessment and plan (1) Acute appendicitis with perforation and peritoneal abscess: Problem details: s/p IR drainage on 04/24/20 Status: Acute Assessment and Plan: Patient doing well status post interventional radiology drainage of periappendiceal abscess. White blood cell count continues to decrease. P vianey's culture of the appendiceal fluid shows coleman sensitivity. Patient will be discharged home on a regular diet and 7 more days of Augmentin 875 mg b.i.d.. Patient will have a repeat CT scan in 1 weeks time frame which I have ordered on discharge. Patient will follow-up with me in the office in 1 weeks time frame and I will order a repeat CBC to evaluate the white blood cell count at that time. The plan will be for a cool off. A 4 weeks prior to having a colonoscopy to evaluate for any other reasons why the patient would have had a perforated appendicitis. If the colonoscopy is normal the patient will then undergo an interval appendectomy at some point in the near future. This was discussed at length the patient. Fall Risk Details Current Medications: Current Medications Generic Name Dose Route Start Last Admin Trade Name Freq PRN Reason Stop Dose Admin Acetaminophen 650 mg 04/23/20 17:52 04/27/20 21:06 Acetaminophen 325 Mg Tablet PO 650 mg Q4H PRN Administration Fever Amlodipine Besylate 5 mg 04/27/20 09:00 04/28/20 09:01 Amlodipine Besylate 5 Mg Tablet PO 5 mg DAILY ADRY Administration Protocol Amphetamine/Dextroamphetamine 20 mg 04/26/20 09:00 04/28/20 09:01 Amphetamine Mixed Salts 20 Mg Tablet PO 20 mg DAILY ADRY Administration Piperacillin Sod/Tazobactam 50 mls @ 100 mls/hr 04/24/20 00:00 04/28/20 07:25 Sod 3.375 gm/ Sodium Chloride IV Infused Q6H ADRY Infusion Morphine Sulfate 2 mg 04/23/20 17:52 Morphine Sulfate 2 Mg/Ml Cartridge IVPUSH Q3H PRN Pain, Moderate (Pain Scale 4-6 Morphine Sulfate 4 mg 04/23/20 17:52 Morphine Sulfate 4 Mg/Ml Cartridge IVPUSH Q3H PRN Pain, Severe (Pain Scale 7-10) Patient Own 1.5 each 04/26/20 06:30 04/28/20 04:49 Medication (Sales Support Engineer PO 1.5 each Thyroid 60 Mg) DAILY@0630 ADRY Administration Ondansetron HCl 4 mg 04/23/20 17:52 Ondansetron Hcl 4 Mg/2 Ml Vial IVPUSH Q8H PRN Nausea Oxycodone HCl 10 mg 04/23/20 17:52 Oxycodone Hcl Immed Release 5 Mg Tablet PO Q3H PRN Pain, Severe (Pain Scale 7-10) Oxycodone HCl 5 mg 04/23/20 17:52 04/24/20 04:25 Oxycodone Hcl Immed Release 5 Mg Tablet PO 5 mg Q3H PRN Administration Pain, Moderate (Pain Scale 4-6 Sodium Chloride 3 ml 04/24/20 00:00 04/28/20 09:05 0.9 % Sodium Chloride Flush 3 Ml Syringe IVFLUSH 3 ml QSHIFT ADRY Administration Time Spent With Patient Time: Total time spent is greater than 50% in coordination of care (as documented) at patient's floor/unit and/or counseling patient: Time with patient: 15 - 24 minutes
--- NOTE | 2020-04-28 10:04 | P.DS_ITS ---
DS: Providers Provider Date of Service: 04/28/20 Date of admission: 04/23/20 16:47 Patient admitted on 04/23/2020 with perforated appendicitis with periappendiceal abscess. She had some tachycardia and a low-grade temperature. Patient was admitted to the surgical service and placed on Zosyn for antibiotics. She was kept NPO and the following day had IR drainage of the periappendiceal abscess and a drain was left in place. Patient was started on regular diet and was feeling slightly improved. The following day the patient's white blood cell count went from 5-26. We repeated the CT scan of the abdomen and pelvis given this elevation in the white blood cell count and the patient was also noted to have some shortness of breath and low oxygen saturations. We also added on a CT scan of the chest to rule out pulmonary embolism. Patient was noted to have atelectasis of the right lower lobe or a early pneumonia. Patient was encouraged to use incentive spirometer we continue to use Zosyn which would cover the pneumonia in addition to the abscess. The abscess culture grew out E coli and strep viridans which was covered by the Zosyn. Patient started to feel improved in terms of shortness of breath and also lower abdominal discomfort. She continued to have regular diet without difficulty. Patient was up and ambulating and using incentive spirometer with improvement in the oxygen saturations. Patient's follow-up white blood cell count continued to decrease and on the day of discharge day were down to 17 from 20/6. Patient's culture sensitivities were finalized on day of discharge and were pansensitive. Patient was then discharged home on Augmentin 875 mg b.i.d. for an additional 7 days which would cover the possible right lower lobe pneumonia and the periappendiceal abscess that was drained. Patient was noted to be doing well and feeling well on the day of discharge. She had evidence of return of bowel function with some loose stools that were starting to form up as well. Patient was afebrile and vital signs within normal limits. Of note a hospitalist consult was obtained when the patient has shortness of breath. The patient also was noted to have increased systolic blood pressures and Norvasc 5 mg was added to the patient's home regimen. Primary care physician: Selene Dewitt MD Consults: 04/26/20 14:50 Consult to Hospitalist Routine Consulting Provider: Hospitalist Reason For Exam: shortness of breath, ct with bilateral pleural eff 04/27/20 15:43 Consult to Infectious Diseases Routine Consulting Provider: Chelly Sim Reason for consultation: Bacteremia, Attending physician on discharge: Britta Landeros DS: Diagnosis Discharge Diagnosis (1) Acute appendicitis with perforation and peritoneal abscess: Status: Acute Problem details: s/p IR drainage on 04/24/20 (2) Right lower lobe pneumonia: Status: Acute DS: Medications Discharge Medications Home Medications: Home Medications Medication Instructions Recorded Confirmed celecoxib 100 mg capsule 100 mg PO BID 01/21/20 04/21/20 dextroamphetamine-amphetamine 20 1 tab PO DAILY 01/21/20 04/25/20 mg tablet dextroamphetamine-amphetamine ER 1 cap PO QAM 01/21/20 04/21/20 10 mg 24hr capsule,extend release lactulose 10 gram/15 mL oral 3 PO PRN 01/21/20 04/21/20 solution Previous Rx's Medication Instructions Recorded valacyclovir 500 mg tablet 500 mg PO DAILY #90 tab 04/04/20 Patient Own Medication 1.5 ea PO DAILY@0630 30 Days 04/28/20 acetaminophen 1,000 mg PO Q6H #60 tab 04/28/20 amlodipine 5 mg PO DAILY #30 tab 04/28/20 amoxicillin-pot clavulanate 1 tab PO Q12H #14 tab 04/28/20 [Augmentin] oxycodone 5 mg PO Q3H PRN 7 Days #20 tab 04/28/20 DS: Summary Time Spent with Patient Time attestation: Total time spent providing and/or coordinating discharge services: Discharge coordination time: Less than 30 minutes Physical Exam Vital Signs: Vital Signs: Last Vital Signs Temp 98.7 F 04/28/20 08:00 Pulse 80 04/28/20 09:01 Resp 18 04/28/20 08:00 BP 178/85 H 04/28/20 09:01 Pulse Ox 95 04/28/20 08:00 Body Mass Index 30.0 DS: Data Data Completed and Pending Labs on day of discharge: Laboratory Results - last 24 hr 04/28/20 04/28/20 05:28 05:28 WBC 17.7 H RBC 3.70 L Hgb 11.2 L Hct 31.4 L MCV 84.9 MCH 30.3 MCHC 35.7 H RDW 13.3 Plt Count 314 MPV 12.0 Absolute Nucleated RBC 0.000 Nucleated RBC % (auto) 0.0 Sodium 135 Potassium 3.6 Chloride 101 Carbon Dioxide 23 Anion Gap 15 BUN 8 L Creatinine 0.60 Estim Creat Clear Calc 77.4 Estimated GFR > 60 Random Glucose 120 H D Calcium 7.4 L Preliminary micro results at discharge 04/23/20 14:50 Blood Culture - Preliminary Blood - Venous Prevotella buccae 04/23/20 15:02 Blood Culture - Preliminary Blood - Venous No growth after 48 hours. Discharge Plan Discharge Patient Disposition: Home, Self-Care Referrals: Selene Dewitt MD [Primary Care Provider] - Discharge Medications: New amlodipine 5 mg Tablet 5 mg PO DAILY Qty: 30 RF: 3 oxycodone 5 mg Tablet 5 mg PO Q3H PRN (Reason: Pain, Moderate (Pain Scale 4-6) 7 Days Qty: 20 RF: 0 Patient Own Medication 1.5 ea PO DAILY@0630 30 Days RF: 3 acetaminophen 500 mg tablet 1,000 mg PO Q6H Qty: 60 RF: 1 amoxicillin-pot clavulanate [Augmentin] 875-125 mg tablet 1 tab PO Q12H Qty: 14 RF: 0 Continued valacyclovir 500 mg tablet 500 mg PO DAILY Qty: 90 RF: 3 dextroamphetamine-amphetamine 20 mg tablet 1 tab PO DAILY RF: 0 lactulose 10 gram/15 mL solution 3 PO PRNRF: 0 dextroamphetamine-amphetamine 10 mg capsule,extended release 24hr 1 cap PO QAM RF: 0 celecoxib 100 mg capsule 100 mg PO BID RF: 0 Discharge Orders: Discharge Order (Routine); Ordered 04/28/20 Ordered By: Britta Landeros Diet: regular diet Activity on Discharge: No heavy lifting Stand Alone Forms: Patient Portal Discharge page Other Ambulatory Orders: CT abdomen pelvis w con (Routine) Timeframe: 1 Week Facility: [facility] - Location: CT Scan Ordered By: Britta Landeros Activity Restrictions/Additional Instructions: No lifting greater than 5-10 lbs until drain is removed. Take tylenol as needed for pain control. Only use oxycodone if pain not controlled with tylenol. Resume regular diet. Radiology should contact you to schedule the follow up ct scan of the abdomen for 1 week. If you do not hear from them, please call Dr. Landeros's office at [phone]. Please follow up with Dr. Landeros in [address] abdomen has been completed. Please call the office if you have shortness of breath or worsening abdomen pain. Please complete the 1 week of antibiotics by mouth as well. Visit Report Forms: Patient Portal Discharge page Care Plan Goals: complete antibiotics, repeat ct scan of abdomen in 1 week, plan colonoscopy in 4 weeks. Interval appendectomy after all workup complete Health Concerns: perforated appendicitis with abscess Plan of Treatment: IR drainage done, plan interval appendectomy in future. Patient Instructions: Pneumonia (DC) Discharge Date/Time: 04/28/20 11:09
--- NOTE | 2020-04-28 10:06 | MHC.CM.PN ---
PATIENT IS DISCHARGED HOME SELF CARE. NO [facility] SERVICES NEEDED ACCORDING TO CONVERSATION WITH SURGEON. IMM 04/27 IN CHART.
== END 2020-04-28 11:09 | disposition home or self-care (01) | DRG 371 ==
LOC: HO.ED 13:30 → HO.EDOVER 17:04 → HO.S3 17:17
PROVIDERS: Internal Medicine; Surgery; Admitting Provider Surgery; Emergency Provider Emergency Medicine Emergency Medical Services; PCP Internal Medicine; Visit Provider Surgery
DX: K35.33 Acute appendicitis with perforation, localized peritonitis, and gangrene, with abscess (principal); J18.9 Pneumonia, unspecified organism; J98.11 Atelectasis; K56.7 Ileus, unspecified; E03.9 Hypothyroidism, unspecified; B96.20 Unspecified Escherichia coli [E. coli] as the cause of diseases classified elsewhere; F98.8 Other specified behavioral and emotional disorders with onset usually occurring in childhood and adolescence; B95.4 Other streptococcus as the cause of diseases classified elsewhere; Z20.822 Contact with and (suspected) exposure to COVID-19; Z96.643 Presence of artificial hip joint, bilateral; Z87.891 Personal history of nicotine dependence; Z79.1 Long term (current) use of non-steroidal anti-inflammatories (NSAID); Z79.890 Hormone replacement therapy; Z79.899 Other long term (current) drug therapy
CPT/HCPCS: 36415; 71046; 71275; 74177; 75989; 80048; 80053; 80076; 81003; 82550; 83605; 83690; 84443; 84484; 85007; 85025; 85027; 85610; 85730; 86850; 86900; 86901; 87040; 87071; 87073; 87076; 87077; 87185; 87186; 87205; 87635; 93005; 96360; 96361; 96365; 96375; 99284; 99285; C1729; C1758; J1100; J1885; J2250; J2405; J2543; J3010; Q9967